=== PATIENT | male | born 1950 | race Caucasian/White ===

== ENCOUNTER 2018-02-07 10:15 | Inpatient (IN) | payer MEDICARE, MEDICAID ==
[2018-02-07 12:03] LABS: EOS % 0.8 % (0.0-4.0); HEMOGLOBIN 14.4 g/dL (12.0-18.0); LYMPH # 1.1 K/uL (1.0-4.3); LYMPH % 39.9 % (20.0-40.0); MEAN CELL VOLUME 94.5 fL (80.0-94.0); MEAN CORPUSCULAR HEMOGLOBIN 31.8 pg (27.0-31.0); MEAN CORPUSCULAR HGB CONC 33.6 g/dL (33.0-37.0); MEAN PLATELET VOLUME 10.9 fL (7.2-11.7); MONO # 0.4 K/uL (0.0-0.8); MONO % 15.6 % (0.0-10.0); NEUT # 1.2 K/uL (1.8-7.0); NEUT % 42.7 % (50.0-75.0); NRBC % 0.1 % (0.0-2.0); RBC 4.55 Mil/uL (4.40-5.90); RED CELL DISTRIBUTION WIDTH 16.6 % (11.5-14.5); WHITE BLOOD COUNT 2.9 K/uL (4.8-10.8)
[2018-02-07] MEDS ORDERED: Albuterol 0.083% Inhal Sol (2.5 mg/3 mL) UD IH STA (12:10)
[2018-02-07 12:11] LABS: INR 1.1; PROTHROMBIN TIME 12.9 SECONDS (9.7-12.2)
[2018-02-07 12:15] LABS: ALB/GLOB RATIO 1.4 (1.0-2.1); ALBUMIN 4.1 g/dL (3.5-5.0); ALT/SGPT 22 U/L (21-72); AST/SGOT 25 U/L (17-59); BLOOD UREA NITROGEN 19 mg/dL (9-20); CALCIUM 9.1 mg/dl (8.6-10.4); GFR AFRICAN-AMERICAN > 60; GFR NON-AFRICAN AMERICAN > 60
[2018-02-07 12:27] LABS: CK-MB 1.13 ng/mL (0.0-3.38)
[2018-02-07] MEDS ORDERED: Albuterol 0.083% Inhal Sol (2.5 mg/3 mL) UD ONE (12:30)
--- NOTE | 2018-02-07 12:31 | RAD ---
HISTORY: COMPARISON: No prior. TECHNIQUE: Chest PA and lateral FINDINGS: LINES AND TUBES: None. LUNG AND PLEURA: The lungs are well inflated and clear. No pneumothorax. There is a small left pleural effusion. No right pleural effusion HEART AND MEDIASTINUM: The heart is not enlarged. The hilar and mediastinal contours are within normal limits. SKELETAL STRUCTURES: The bony structures are within normal limits for the patient's age. VISUALIZED UPPER ABDOMEN: Normal. OTHER FINDINGS: None. IMPRESSION: Small left pleural effusion. No focal consolidation.
--- NOTE | 2018-02-07 12:46 | C.PDOC ---
History Of Present Illness 67 y/o male with history of CHF, Asthma, HTN and DM presents to ED with complaints of persistent cough with sputum associated sob for three days. (+) occasional chest pain with cough. (+) leg swelling Patient states symptoms are worse when laying down. Also admits to having increasing anxiety. Notes h/o stress test but unable to finish secondary to difficulty breathing on 11/2017. Denies fever, nausea, vomiting, symtpoms, or abdominal pain. Time Seen by Provider: 02/07/18 11:42 Chief Complaint (Nursing): Cough, Cold, Congestion History Per: Patient History/Exam Limitations: no limitations Onset/Duration Of Symptoms: Days Current Symptoms Are (Timing): Still Present Past Medical History Reviewed: Historical Data, Nursing Documentation, Vital Signs Vital Signs: Last Vital Signs Temp 97.2 F L 02/08/18 08:31 Pulse 83 02/08/18 08:31 Resp 20 02/08/18 08:31 BP 120/70 02/08/18 11:00 Pulse Ox 97 02/08/18 08:31 - Medical History PMH: Anxiety, Asthma, CHF, HTN, Hyperlipidemia Surgical History: No Surg Hx Family History: States: No Known Family Hx - Social History Hx Alcohol Use: Yes Hx Substance Use: No - Immunization History Hx Tetanus Toxoid Vaccination: No Hx Influenza Vaccination: Yes Hx Pneumococcal Vaccination: Yes Review Of Systems Constitutional: Negative for: Fever, Chills Cardiovascular: Positive for: Chest Pain Respiratory: Positive for: Cough, Shortness of Breath Gastrointestinal: Negative for: Nausea, Vomiting Skin: Negative for: Rash Physical Exam - Physical Exam Appears: Non-toxic, No Acute Distress, Other (anxious) Skin: Warm, Dry, No Rash Head: Atraumatic, Normacephalic Eye(s): bilateral: Normal Inspection, EOMI Nose: Normal Oral Mucosa: Moist Throat: Normal, No Erythema, No Exudate Neck: Normal ROM, Supple Chest: Symmetrical Cardiovascular: Rhythm Regular Respiratory: Decreased Breath Sounds, No Rales, No Rhonchi, No Wheezing Gastrointestinal/Abdominal: Soft, No Tenderness, No Guarding, No Rebound Extremity: Normal ROM, No Pedal Edema, Capillary Refill (<2 seconds) Neurological/Psych: Oriented x3, Normal Speech, Normal Cognition ED Course And Treatment - Laboratory Results Result Diagrams: 02/08/18 07:34 02/08/18 07:34 O2 Sat by Pulse Oximetry: 99 (RA) Pulse Ox Interpretation: Normal Progress Note: ECG, Albuterol, Neb treatment and Blood work ordered. Spoke to Dr. Gray in regards to patient, advised for admission to [facility]. Disposition - Disposition Disposition: HOSPITALIZED Disposition Time: 17:00 Condition: STABLE - Clinical Impression Clinical Impression: Bronchitis, Chest pain, Anxiety - PA / REHABILITATION LIAISON / Resident Statement MD/DO has reviewed & agrees with the documentation as recorded. - Scribe Statement The provider has reviewed the documentation as recorded by the Scribyuly Degroot All medical record entries made by the Elliot were at my direction and personally dictated by me. I have reviewed the chart and agree that the record accurately reflects my personal performance of the history, physical exam, medical decision making, and the department course for this patient. I have also personally directed, reviewed, and agree with the discharge instructions and disposition.
[2018-02-07 13:04] LABS: B-TYPE NATRIURETIC PEPTIDE 1540 pg/mL (0-900)
[2018-02-07 13:25] LABS: LIPASE 49 U/L (23-300)
[2018-02-07 21:50] LABS: CK-MB 1.07 ng/mL (0.0-3.38)
[2018-02-07] MEDS: Sacubitril/Valsartan 24-26mg Tab PO SCH (21:51)
[2018-02-08] MEDS: Albuterol HFA 90 mcg/actuation (8 g) IH SCH ×2 (01:24→19:08)
[2018-02-08 07:52] LABS: HEMOGLOBIN 14.1 g/dL (12.0-18.0); MEAN CELL VOLUME 94.8 fL (80.0-94.0); MEAN CORPUSCULAR HGB CONC 33.8 g/dL (33.0-37.0); MEAN PLATELET VOLUME 10.2 fL (7.2-11.7); RBC 4.39 Mil/uL (4.40-5.90); RED CELL DISTRIBUTION WIDTH 16.2 % (11.5-14.5); WHITE BLOOD COUNT 3.5 K/uL (4.8-10.8)
[2018-02-08 08:00] LABS: BLOOD UREA NITROGEN 23 mg/dL (9-20); CALCIUM 8.7 mg/dl (8.6-10.4); GFR AFRICAN-AMERICAN > 60; GFR NON-AFRICAN AMERICAN > 60
--- NOTE | 2018-02-08 10:49 | CP.PCM.PN ---
Subjective - Date & Time of Evaluation Date of Evaluation: 02/08/18 Time of Evaluation: 08:29 - Subjective Subjective: Medicine Progress Note- Dr. Gray's service 67 year old male with past medical history significant for asthma, HTN , DM and insomnia presents with complaints of coughing and shortness of breath which he began experiencing yesterday. Patient states that he was experiencing some pressure associated with the shortness of breath. He states that the cough is productive in nature with white sputum. He admits to sneezing. He denies rhinorrhea, chest pain, headaches, or palpitations or sick contacts at this time. PMHx- as stated above PSHx- denies Fam Hx- DM runs in the family Medications- albuterol, ASA 81 mg daily, Plavix 75 mg PO daily, Lasix 20 mg PO BID, Gabapentin 40 mg PO TID, Sacubitril/Valsartan 1 tab PO BID, Restoril 30mg PO HS, Tramadol 50 mg PO Q12 PRN Social- Former smoker - Quit 12 years ago. he smoked for " many years". He admits to social alcohol use. Allergy- Penicillin (rash) Objective - Vital Signs/Intake and Output Vital Signs (last 24 hours): Temp Pulse Resp BP Pulse Ox 97.2 F L 83 20 124/86 97 02/08/18 08:31 02/08/18 08:31 02/08/18 08:31 02/08/18 08:31 02/08/18 08:31 - Medications Medications: Current Medications Albuterol (Ventolin Hfa 90 Mcg/Actuation (8 G)) 2 puff IH RQ6 [facility] Last Admin: 02/08/18 01:24 Dose: Not Given Aspirin (Ecotrin) 81 mg PO DAILY [facility] Clopidogrel Bisulfate (Plavix) 75 mg PO DAILY [facility] Enoxaparin Sodium (Lovenox) 40 mg SC DAILY [facility] Furosemide (Lasix) 20 mg PO BID [facility] Gabapentin (Neurontin) 400 mg PO TID [facility] Last Admin: 02/07/18 21:51 Dose: 400 mg Pneumococcal Polyvalent Vaccine (Pneumovax 23 Vaccine) 0.5 ml IM .ONCE ONE Stop: 02/09/18 10:01 Sacubitril/Valsartan (Entresto 24 Mg-26 Mg) 1 tab PO BID [facility] Last Admin: 02/07/18 21:51 Dose: 1 tab Temazepam (Restoril) 30 mg PO HS PRN PRN Reason: Insomnia Last Admin: 02/07/18 21:51 Dose: 30 mg Tramadol HCl (Ultram) 50 mg PO Q12 PRN PRN Reason: Pain, moderate (4-7) Last Admin: 02/07/18 21:51 Dose: 50 mg - Labs Labs: 02/08/18 07:34 02/08/18 07:34 PT 12.9 SECONDS (9.7-12.2) H 02/07/18 12:00 INR 1.1 02/07/18 12:00 APTT 32 SECONDS (21-34) 02/07/18 12:00 - Constitutional Appears: Non-toxic, No Acute Distress - Head Exam Head Exam: ATRAUMATIC, NORMAL INSPECTION - Eye Exam Eye Exam: EOMI, Normal appearance, PERRL Pupil Exam: NORMAL ACCOMODATION - ENT Exam ENT Exam: Mucous Membranes Moist - Neck Exam Neck Exam: Full ROM - Respiratory Exam Respiratory Exam: NORMAL BREATHING PATTERN. absent: Wheezes Additional comments: decreased expiratory effort - Cardiovascular Exam Cardiovascular Exam: +S1, +S2 - GI/Abdominal Exam GI & Abdominal Exam: Soft, Normal Bowel Sounds - Extremities Exam Extremities Exam: Full ROM, Normal Capillary Refill - Back Exam Back Exam: Full ROM - Neurological Exam Neurological Exam: Alert, Awake, Oriented x3 - Psychiatric Exam Psychiatric exam: Normal Affect, Normal Mood - Skin Skin Exam: Dry, Normal Color, Warm Assessment and Plan (1) Shortness of breath Assessment & Plan: Albuterol HFA Q6 PRN CXR- Small left sided pleural effusion noted BNP 1540 On Oxygen NC PRN F/U EKG and Echo Status: Acute (2) HTN (hypertension) Assessment & Plan: ASA 81 mg PO daily Lasix 20 mg PO BID Status: Chronic (3) Diabetes mellitus Assessment & Plan: on ISS Accuchecks Gabapentin 400 mg PO TID On Entresto BID Status: Chronic (4) Prophylactic measure Assessment & Plan: Lovenox SC daily No indication for GI prophylaxis at this time. Disposition: Will monitor overnight. With continued improvement, will likely discharge tomorrow if EKG and Echo results are within normal parameters. Discussed with attending. All management and planning per Dr. Gray Status: Acute
[2018-02-08] MEDS: Sacubitril/Valsartan 24-26mg Tab PO SCH ×2 (11:00→18:52)
[2018-02-08] MEDS: Enoxaparin 40 mg Syringe SC SCH (11:00)
--- NOTE | 2018-02-08 17:13 | CARD ---
APPROVED REPORT EKG Measurement Heart [id number] <Conclusion> Normal sinus rhythm Possible Left atrial enlargement T wave abnormality, consider lateral ischemia Abnormal ECG
[2018-02-09] MEDS: Albuterol HFA 90 mcg/actuation (8 g) IH SCH ×3 (02:21→19:39)
--- NOTE | 2018-02-09 07:57 | CP.PCM.PN ---
Subjective - Date & Time of Evaluation Date of Evaluation: 02/09/18 Time of Evaluation: 07:56 - Subjective Subjective: Medicine Progress Note- Dr. Gray's service Pt seen and examined at bedside. Nursing reports no acute events overnight. Patient reports his breathing was much improved today. He denies shortness of breath with exertion, chest pain, or palpitations. Patient was able to walk around department briskly without any desaturation or needing to rest. Objective - Vital Signs/Intake and Output Vital Signs (last 24 hours): Temp Pulse Resp BP Pulse Ox 97.4 F L 74 20 111/75 97 02/08/18 23:40 02/09/18 03:57 02/08/18 23:40 02/08/18 23:40 02/08/18 23:40 Intake and Output: 02/09/18 02/09/18 06:59 18:59 Intake Total 500 Output Total 525 Balance -25 - Medications Medications: Current Medications Albuterol (Ventolin Hfa 90 Mcg/Actuation (8 G)) 2 puff IH RQ6 [facility] Last Admin: 02/09/18 02:21 Dose: Not Given Aspirin (Ecotrin) 81 mg PO DAILY [facility] Last Admin: 02/08/18 11:00 Dose: 81 mg Benzonatate (Tessalon Perles) 100 mg PO TID [facility] Last Admin: 02/08/18 18:50 Dose: 100 mg Clopidogrel Bisulfate (Plavix) 75 mg PO DAILY [facility] Last Admin: 02/08/18 11:00 Dose: 75 mg Enoxaparin Sodium (Lovenox) 40 mg SC DAILY [facility] Last Admin: 02/08/18 11:00 Dose: Not Given Furosemide (Lasix) 20 mg PO BID [facility] Last Admin: 02/08/18 18:52 Dose: 20 mg Gabapentin (Neurontin) 400 mg PO TID [facility] Last Admin: 02/08/18 18:52 Dose: 400 mg Pneumococcal Polyvalent Vaccine (Pneumovax 23 Vaccine) 0.5 ml IM .ONCE ONE Stop: 02/09/18 10:01 Sacubitril/Valsartan (Entresto 24 Mg-26 Mg) 1 tab PO BID [facility] Last Admin: 02/08/18 18:52 Dose: 1 tab Temazepam (Restoril) 30 mg PO HS PRN PRN Reason: Insomnia Last Admin: 02/08/18 20:56 Dose: 30 mg Tramadol HCl (Ultram) 50 mg PO Q12 PRN PRN Reason: Pain, moderate (4-7) Last Admin: 02/08/18 20:56 Dose: 50 mg - Labs Labs: 02/08/18 07:34 02/08/18 07:34 PT 12.9 SECONDS (9.7-12.2) H 02/07/18 12:00 INR 1.1 02/07/18 12:00 APTT 32 SECONDS (21-34) 02/07/18 12:00 - Additional Findings Additional findings: - Constitutional Appears: Non-toxic, No Acute Distress - Head Exam Head Exam: ATRAUMATIC, NORMAL INSPECTION - Eye Exam Eye Exam: EOMI, Normal appearance, PERRL Pupil Exam: NORMAL ACCOMODATION - ENT Exam ENT Exam: Mucous Membranes Moist - Neck Exam Neck Exam: Full ROM - Respiratory Exam Respiratory Exam: NORMAL BREATHING PATTERN. absent: Wheezes Additional comments: - Cardiovascular Exam Cardiovascular Exam: +S1, +S2 - GI/Abdominal Exam GI & Abdominal Exam: Soft, Normal Bowel Sounds - Extremities Exam Extremities Exam: Full ROM, Normal Capillary Refill - Back Exam Back Exam: Full ROM - Neurological Exam Neurological Exam: Alert, Awake, Oriented x3 - Psychiatric Exam Psychiatric exam: Normal Affect, Normal Mood - Skin Skin Exam: Dry, Normal Color, Warm Assessment and Plan - Assessment and Plan (Free Text) Plan: Asthma vs CHF exacerbation vs. Bronchitis Admission on tele EKG (02/07/18): NSR, CXR- Small left sided pleural effusion noted BNP 1540 (no prior for comparison) On Oxygen NC PRN f/u Echo (02/08/18) Ventolin HFA Q6 PRN Entresto 24/26mg PO BID Lasix 20mg PO BID Tessalon perles 100mg PO TID Pt reports he is intolerant of BB and no longer takes Coreg Leukopenia WBC 2.9 on admission labs f/u hepatitis panel, HIV HTN (hypertension) Elevated Disastolic today Lasix 20 mg PO BID Entresto 24/26mg PO BID Monitor CAD ASA 81 mg PO daily Plavix 75mg PO Daily Diabetes mellitus w neuropathy ISS Accuchecks Hypoglycemia protocol Gabapentin 400 mg PO TID Insomnia 30mg PO HS Prophylactic measure Lovenox SC daily SCDs No indication for GI prophylaxis at this time. Disposition: Patient for possible discharge depending on ECHO reading. Dr. Melgar is reading investment manager. If EF<35% will need cardio eval, perhaps lifevest. Discussed with attending. All management and planning per Dr. Gray
[2018-02-09 08:03] LABS: BASO % 0.8 % (0.0-2.0); EOS # 0.1 K/uL (0.0-0.7); EOS % 2.6 % (0.0-4.0); HEMOGLOBIN 13.6 g/dL (12.0-18.0); LYMPH # 1.7 K/uL (1.0-4.3); LYMPH % 53.6 % (20.0-40.0); MEAN CELL VOLUME 93.8 fL (80.0-94.0); MEAN CORPUSCULAR HEMOGLOBIN 31.9 pg (27.0-31.0); MEAN PLATELET VOLUME 10.5 fL (7.2-11.7); MONO # 0.4 K/uL (0.0-0.8); MONO % 14.5 % (0.0-10.0); NEUT # 0.9 K/uL (1.8-7.0); NEUT % 28.5 % (50.0-75.0); NRBC % 0.2 % (0.0-2.0); RBC 4.25 Mil/uL (4.40-5.90); RED CELL DISTRIBUTION WIDTH 16.3 % (11.5-14.5); WHITE BLOOD COUNT 3.1 K/uL (4.8-10.8)
[2018-02-09 08:27] LABS: ALB/GLOB RATIO 1.4 (1.0-2.1); ALBUMIN 3.5 g/dL (3.5-5.0); ALT/SGPT 14 U/L (21-72); AST/SGOT 19 U/L (17-59); BLOOD UREA NITROGEN 22 mg/dL (9-20); CALCIUM 8.2 mg/dl (8.6-10.4); GFR AFRICAN-AMERICAN > 60; GFR NON-AFRICAN AMERICAN > 60
[2018-02-09] MEDS: Enoxaparin 40 mg Syringe SC SCH (09:10)
[2018-02-09] MEDS: Sacubitril/Valsartan 24-26mg Tab PO SCH ×3 (09:21→21:02)
[2018-02-09] MEDS ORDERED: Pneumococcal 23-Valent Vaccine IM ONE (10:00)
--- NOTE | 2018-02-09 16:41 | CARD ---
APPROVED REPORT EXAM: Two-dimensional and M-mode echocardiogram with Doppler and color Doppler. Other Information Quality : GoodRhythm : INDICATION Dizziness and Vertigo Dyspnea RISK FACTORS Hypertension Diabetes 2D DIMENSIONS IVSd0.7 (0.7-1.1cm)LVDd6.1 (3.9-5.9cm) PWd0.9 (0.7-1.1cm)LVDs5.7 (2.5-4.0cm) FS (%) 6.9 %LVEF (%)15.0 (>50%) M-Mode DIMENSIONS RVDd1.25 (2.1-3.2cm)Left Atrium (MM)5.24 (2.5-4.0cm) IVSd1.03 (0.7-1.1cm)Aortic Root2.97 (2.2-3.7cm) LVDd6.97 (4.0-5.6cm)Aortic Cusp Exc.1.66 (1.5-2.0cm) PWd0.96 (0.7-1.1cm)FS (%) 12 % LVDs6.12 (2.0-3.8cm)LVEF (%)18 (>50%) Aortic Valve AI P 1/2 [id number] Mitral Valve MV E Aqfyglwt393.6cm/sE/A ratio0.0 TDI E/Lateral E'0.0E/Medial E'0.0 Tricuspid Valve TR Peak [id number]/sTR Peak Gr.[id number] LEFT VENTRICLE The Left Ventricle is mildly dilated. There is normal left ventricular wall thickness. The systolic function is severely impaired. Regional wall motion abnormalities noted in the lateral and anterior lopez No left ventricle thrombus noted on this study. RIGHT VENTRICLE The right ventricle is mildly dilated. There is normal right ventricular wall thickness. RV Systolic function is moderately reduced. ATRIA The left atrium is moderately dilated. The right atrium is mildly dilated. The atrial septum is aneurysmal. AORTIC VALVE There is mild aortic regurgitation. MITRAL VALVE Mitral regurgitation is severe. TRICUSPID VALVE There is moderate tricuspid regurgitation. There is severe pulmonary hypertension. PULMONIC VALVE There is mild pulmonic valvular regurgitation. GREAT VESSELS The aortic root is normal in size. The IVC is normal in size and collapses >50% with inspiration. PERICARDIAL EFFUSION There is no pericardial effusion. <Conclusion> The Left Ventricle is mildly dilated. There is normal left ventricular wall thickness. The systolic function is severely impaired. Regional wall motion abnormalities noted in the lateral and anterior lopez RV Systolic function is moderately reduced. There is mild aortic regurgitation. Mitral regurgitation is severe. There is moderate tricuspid regurgitation. There is severe pulmonary hypertension.
[2018-02-09 20:40] LABS: HEPATITIS B SURFACE AG Negative (NEGATIVE)
[2018-02-09 20:46] LABS: HEPATITIS A IGM NEGATIVE (NEGATIVE); HEPATITIS B CORE AB NEGATIVE (NEGATIVE)
[2018-02-09] MEDS ORDERED: guaiFENesin 100 mg/5 ml Syrup UD PO PRN (21:23)
[2018-02-09 21:42] LABS: HEPATITIS C ANTIBODY NEGATIVE (NEGATIVE)
[2018-02-10 00:54] VITALS: RESP 20
[2018-02-10] MEDS: Albuterol HFA 90 mcg/actuation (8 g) IH SCH (01:43)
--- NOTE | 2018-02-10 05:42 | CP.PCM.CON ---
History of Present Illness - History of Present Illness History of Present Illness: 67 M admitted with chest pain and dyspnea Acute on Chronic systolic CHF Patient has low EF 20% Severe MR Severe Pulmonary HTN Likely needs cath (Wednesday) LifeVest Diuresis for now Check Trops Will contact Dr. Pham Past Patient History - Infectious Disease Hx of Infectious Diseases: None - Past Social History Smoking Status: Former Smoker - CARDIAC Hx Congestive Heart Failure: Yes Hx Hypertension: Yes - PULMONARY Hx Asthma: Yes - ENDOCRINE/METABOLIC Hx Endocrine Disorders: Yes Hx Diabetes Mellitus Type 2: Yes - MUSCULOSKELETAL/RHEUMATOLOGICAL Hx Falls: Yes (foot sx in the past) - GASTROINTESTINAL Hx Gastrointestinal Disorders: Yes Hx Gastroesophageal Reflux: Yes - PSYCHIATRIC Hx Anxiety: Yes Hx Substance Use: No - SURGICAL HISTORY Hx Surgeries: Yes Hx Orthopedic Surgery: Yes (left leg) - ANESTHESIA Hx Anesthesia: Yes Hx Anesthesia Reactions: No Meds Allergies/Adverse Reactions: Allergies Allergy/AdvReac Type Severity Reaction Status Date / Time Penicillins Allergy ITCHING Verified 07/13/16 09:34 - Medications Medications: Current Medications Albuterol (Ventolin Hfa 90 Mcg/Actuation (8 G)) 2 puff IH RQ6 [facility] Last Admin: 02/10/18 01:43 Dose: Not Given Albuterol/Ipratropium (Duoneb 3 Mg/0.5 Mg (3 Ml) Ud) 3 ml INH RQ4 [facility] Aspirin (Ecotrin) 81 mg PO DAILY [facility] Last Admin: 02/09/18 09:11 Dose: 81 mg Benzonatate (Tessalon Perles) 100 mg PO TID [facility] Last Admin: 02/09/18 21:02 Dose: 100 mg Clopidogrel Bisulfate (Plavix) 75 mg PO DAILY [facility] Last Admin: 02/09/18 09:15 Dose: 75 mg Enoxaparin Sodium (Lovenox) 40 mg SC DAILY [facility] Last Admin: 02/09/18 09:10 Dose: 40 mg Furosemide (Lasix) 20 mg PO BID [facility] Last Admin: 02/09/18 17:50 Dose: Not Given Gabapentin (Neurontin) 400 mg PO TID [facility] Last Admin: 02/09/18 21:02 Dose: 400 mg Guaifenesin (Robitussin) 100 mg PO Q4H PRN PRN Reason: Cough Last Admin: 02/09/18 21:35 Dose: 100 mg Sacubitril/Valsartan (Entresto 24 Mg-26 Mg) 1 tab PO BID [facility] Last Admin: 02/09/18 21:02 Dose: 1 tab Temazepam (Restoril) 30 mg PO HS PRN PRN Reason: Insomnia Last Admin: 02/09/18 21:02 Dose: 30 mg Tramadol HCl (Ultram) 50 mg PO Q12 PRN PRN Reason: Pain, moderate (4-7) Last Admin: 02/09/18 21:01 Dose: 50 mg Results - Vital Signs Recent Vital Signs: Last Vital Signs Temp 98.4 F 02/09/18 23:35 Pulse 95 H 02/10/18 03:58 Resp 20 02/09/18 23:35 BP 100/70 02/09/18 23:35 Pulse Ox 98 02/09/18 23:35 - Labs Result Diagrams: 02/09/18 08:10 02/09/18 08:06 Labs: Laboratory Results - last 24 hr 02/09/18 02/09/18 02/09/18 06:11 08:06 08:10 WBC 3.1 L RBC 4.25 L Hgb 13.6 Hct 39.8 MCV 93.8 MCH 31.9 H MCHC 34.0 RDW 16.3 H Plt Count 203 MPV 10.5 Neut % (Auto) 28.5 L Lymph % (Auto) 53.6 H Burnett % (Auto) 14.5 H Eos % (Auto) 2.6 Baso % (Auto) 0.8 Neut # (Auto) 0.9 L Lymph # (Auto) 1.7 Burnett # (Auto) 0.4 Eos # (Auto) 0.1 Baso # (Auto) 0.0 Sodium 137 Potassium 3.8 Chloride 103 Carbon Dioxide 24 Anion Gap 15 BUN 22 H Creatinine 1.1 Est GFR ( Amer) > 60 Est GFR (Non-Af Amer) > 60 POC Glucose (mg/dL) 85 Random Glucose 82 Calcium 8.2 L Phosphorus 2.9 Magnesium 1.8 Total Bilirubin 0.6 AST 19 ALT 14 L D Alkaline Phosphatase 38 Total Protein 6.0 L Albumin 3.5 Globulin 2.5 Albumin/Globulin Ratio 1.4 Hepatitis A IgM Ab Hep Bs Antigen Hep B Core IgM Ab Hepatitis C Antibody HIV 1&2 Antibody Screen 02/09/18 02/09/18 02/09/18 11:23 16:17 19:45 WBC RBC Hgb Hct MCV MCH MCHC RDW Plt Count MPV Neut % (Auto) Lymph % (Auto) Burnett % (Auto) Eos % (Auto) Baso % (Auto) Neut # (Auto) Lymph # (Auto) Burnett # (Auto) Eos # (Auto) Baso # (Auto) Sodium Potassium Chloride Carbon Dioxide Anion Gap BUN Creatinine Est GFR ( Amer) Est GFR (Non-Af Amer) POC Glucose (mg/dL) 113 H 112 H Random Glucose Calcium Phosphorus Magnesium Total Bilirubin AST ALT Alkaline Phosphatase Total Protein Albumin Globulin Albumin/Globulin Ratio Hepatitis A IgM Ab Negative Hep Bs Antigen Negative Hep B Core IgM Ab Negative Hepatitis C Antibody Negative HIV 1&2 Antibody Screen 02/09/18 02/09/18 19:45 21:08 WBC RBC Hgb Hct MCV MCH MCHC RDW Plt Count MPV Neut % (Auto) Lymph % (Auto) Burnett % (Auto) Eos % (Auto) Baso % (Auto) Neut # (Auto) Lymph # (Auto) Burnett # (Auto) Eos # (Auto) Baso # (Auto) Sodium Potassium Chloride Carbon Dioxide Anion Gap BUN Creatinine Est GFR ( Amer) Est GFR (Non-Af Amer) POC Glucose (mg/dL) 97 Random Glucose Calcium Phosphorus Magnesium Total Bilirubin AST ALT Alkaline Phosphatase Total Protein Albumin Globulin Albumin/Globulin Ratio Hepatitis A IgM Ab Hep Bs Antigen Hep B Core IgM Ab Hepatitis C Antibody HIV 1&2 Antibody Screen Negative
--- NOTE | 2018-02-10 08:02 | CP.PCM.PN ---
Subjective - Date & Time of Evaluation Date of Evaluation: 02/10/18 Time of Evaluation: 08:00 - Subjective Subjective: Medicine Progress Note- Dr. Gray's service Pt seen and examined at bedside. Nursing reports no acute events overnight. Patient reports his breathing was much improved today. He denies shortness of breath with exertion, chest pain, or palpitations. Patient is ambulating. Patient is refusing lifevest/AICD and would like to go home. Objective - Vital Signs/Intake and Output Vital Signs (last 24 hours): Temp Pulse Resp BP Pulse Ox 98.4 F 95 H 20 100/70 98 02/09/18 23:35 02/10/18 03:58 02/09/18 23:35 02/09/18 23:35 02/09/18 23:35 - Medications Medications: Current Medications Albuterol (Ventolin Hfa 90 Mcg/Actuation (8 G)) 2 puff IH RQ6 [facility] Last Admin: 02/10/18 01:43 Dose: Not Given Albuterol/Ipratropium (Duoneb 3 Mg/0.5 Mg (3 Ml) Ud) 3 ml INH RQ4 [facility] Aspirin (Ecotrin) 81 mg PO DAILY [facility] Last Admin: 02/09/18 09:11 Dose: 81 mg Benzonatate (Tessalon Perles) 100 mg PO TID [facility] Last Admin: 02/09/18 21:02 Dose: 100 mg Clopidogrel Bisulfate (Plavix) 75 mg PO DAILY [facility] Last Admin: 02/09/18 09:15 Dose: 75 mg Enoxaparin Sodium (Lovenox) 40 mg SC DAILY [facility] Last Admin: 02/09/18 09:10 Dose: 40 mg Furosemide (Lasix) 20 mg PO BID [facility] Last Admin: 02/09/18 17:50 Dose: Not Given Gabapentin (Neurontin) 400 mg PO TID [facility] Last Admin: 02/09/18 21:02 Dose: 400 mg Guaifenesin (Robitussin) 100 mg PO Q4H PRN PRN Reason: Cough Last Admin: 02/09/18 21:35 Dose: 100 mg Sacubitril/Valsartan (Entresto 24 Mg-26 Mg) 1 tab PO BID [facility] Last Admin: 02/09/18 21:02 Dose: 1 tab Temazepam (Restoril) 30 mg PO HS PRN PRN Reason: Insomnia Last Admin: 02/09/18 21:02 Dose: 30 mg Tramadol HCl (Ultram) 50 mg PO Q12 PRN PRN Reason: Pain, moderate (4-7) Last Admin: 02/09/18 21:01 Dose: 50 mg - Labs Labs: 02/09/18 08:10 02/09/18 08:06 PT 12.9 SECONDS (9.7-12.2) H 02/07/18 12:00 INR 1.1 02/07/18 12:00 APTT 32 SECONDS (21-34) 02/07/18 12:00 - Constitutional Appears: Non-toxic, No Acute Distress - Head Exam Head Exam: NORMAL INSPECTION - Eye Exam Eye Exam: EOMI Pupil Exam: NORMAL ACCOMODATION - ENT Exam ENT Exam: Mucous Membranes Moist - Respiratory Exam Respiratory Exam: Clear to Ausculation Bilateral, Rales, NORMAL BREATHING PATTERN - Cardiovascular Exam Cardiovascular Exam: REGULAR RHYTHM, +S1, +S2 - GI/Abdominal Exam GI & Abdominal Exam: Soft, Normal Bowel Sounds. absent: Distended, Firm, Guarding, Tenderness - Extremities Exam Extremities Exam: Normal Inspection, Pedal Edema - Back Exam Back Exam: NORMAL INSPECTION - Neurological Exam Neurological Exam: Alert, Awake, CN II-XII Intact, Normal Gait, Oriented x3 - Psychiatric Exam Psychiatric exam: Normal Affect, Normal Mood Assessment and Plan - Assessment and Plan (Free Text) Assessment: CHF exacerbation , acute on chronic systolic dysfunction ECHO results show EF of ~18%, wall motion abnormalities, severe Pulm HTN Dr. Zhao cardiology consulted for med optimization/lifevest candidate - Patient had a cardiac cath in June/ of last year at [facility] which showed clear coronaries Patient is refusing lifevest and AICD - private liquid floor and wall applier is Dr. Esdras Pham BNP 1540 (no prior for comparison) Lasix 20mg PO BID Entresto 24/26mg PO BID As[facility] 81mg PO daily Asthma vs CHF exacerbation vs. Bronchitis Admission on tele EKG (02/07/18): NSR, CXR- Small left sided pleural effusion noted On Oxygen NC PRN Ventolin HFA Q6 PRN Tessalon perles 100mg PO TID Pt reports he is intolerant of BB and no longer takes Coreg Leukopenia WBC 2.9 on admission labs hepatitis panel, HIV - negative HTN (hypertension) Elevated Disastolic today Lasix 20 mg PO BID Entresto 24/26mg PO BID Monitor CAD ASA 81 mg PO daily Plavix 75mg PO Daily Diabetes mellitus w neuropathy ISS Accuchecks Hypoglycemia protocol Gabapentin 400 mg PO TID Insomnia Restoril 30mg PO HS Prophylactic measure Lovenox SC daily SCDs No indication for GI prophylaxis at this time. Patient is stable for discharge home. Patient is to follow up with Dr. Gray within one week of discharge. Patient also is to follow up with his liquid floor and wall applier outpatient within one week so discharge. Patient refused lifevest/ defibrillator device. Patient is to continue his current medications. Refills were sent to the [facility] pharmacy on [address]. Patient is to return to the emergency room if symptoms return. All instructions explained to the patient and he agrees. Discussed with attending. All management and planning per Dr. Gray
[2018-02-10 08:30] VITALS: BP 98/66; TEMP 97.7; O2SAT 95
[2018-02-10 08:33] VITALS: PULSE 107
[2018-02-10] MEDS: Sacubitril/Valsartan 24-26mg Tab PO SCH (10:00)
[2018-02-10] MEDS: Enoxaparin 40 mg Syringe SC SCH (10:01)
--- NOTE | 2018-02-10 15:19 | PCM.HF ---
Heart Failure Core Measure - Heart Failure Ejection Fraction: Less Than 40 % KENN Inhibitor Prescribed: Yes Beta-Tony Prescribed: Carvedilol Angiotensin II Receptor Tony Prescribed: Yes AnticoagulationTherapy for Atrial Fibrillation/Atrialflutter: No Contraindication/Reason for not providing: no hx of a fib Aldosterone Antagonist Prescribed: Yes Hydralazine Nitrate Prescribed: No Contraindication/Reason for not providing: bp low Implantable Cardioverter Defibrillator Therapy: No Contraindication/Reason for not providing: pt refuse d Cardiac Resynchronization Therapy Prescribed: No Contraindication/Reason for not providing: pt refuse / only medical management - Follow up Will be discharged to: Home Follow Up Date (must be within 7 days from discharge): 02/14/18 Follow Up Time: 09:00
[2018-02-10] MEDS ORDERED: Albuterol-Ipratrop 3 mg / 0.5 (3 ml) UD INH SCH (21:24)
== END 2018-02-10 12:29 | disposition home or self-care (01) | DRG 314 ==
LOC: C.ER 10:15 → C.9E 13:41 → C.6T 17:45 → OBSVTOIN 02-09 16:46
PROVIDERS: ADMIT Internal Medicine Pulmonary Disease; ATTEND Internal Medicine Pulmonary Disease
DX: I27.20 Pulmonary hypertension, unspecified (principal); I50.23 Acute on chronic systolic (congestive) heart failure; J45.909 Unspecified asthma, uncomplicated; I11.0 Hypertensive heart disease with heart failure; I25.10 Atherosclerotic heart disease of native coronary artery without angina pectoris; F41.9 Anxiety disorder, unspecified; E78.5 Hyperlipidemia, unspecified; E11.40 Type 2 diabetes mellitus with diabetic neuropathy, unspecified; Z88.0 Allergy status to penicillin; K21.9 Gastro-esophageal reflux disease without esophagitis; G47.00 Insomnia, unspecified; T36.0X5A Adverse effect of penicillins, initial encounter; Z87.891 Personal history of nicotine dependence; D72.819 Decreased white blood cell count, unspecified

== ENCOUNTER 2018-02-25 17:08 | Inpatient (IN) | payer MEDICARE, MEDICAID ==
[2018-02-25 17:58] LABS: BASO % 0.9 % (0.0-2.0); EOS % 0.6 % (0.0-4.0); HEMOGLOBIN 13.6 g/dL (12.0-18.0); LYMPH % 40.8 % (20.0-40.0); MEAN CELL VOLUME 93.7 fL (80.0-94.0); MEAN CORPUSCULAR HEMOGLOBIN 31.8 pg (27.0-31.0); MEAN CORPUSCULAR HGB CONC 33.9 g/dL (33.0-37.0); MEAN PLATELET VOLUME 10.3 fL (7.2-11.7); MONO # 0.4 K/uL (0.0-0.8); MONO % 8.9 % (0.0-10.0); NEUT # 2.4 K/uL (1.8-7.0); NEUT % 48.8 % (50.0-75.0); NRBC % 0.1 % (0.0-2.0); RBC 4.28 Mil/uL (4.40-5.90); RED CELL DISTRIBUTION WIDTH 16.6 % (11.5-14.5)
[2018-02-25 18:02] LABS: WHITE BLOOD COUNT 4.8 K/uL (4.8-10.8)
[2018-02-25 18:07] LABS: ALB/GLOB RATIO 1.7 (1.0-2.1); ALT/SGPT 47 U/L (21-72); AST/SGOT 62 U/L (17-59); BLOOD UREA NITROGEN 25 mg/dL (9-20); GFR AFRICAN-AMERICAN > 60; GFR NON-AFRICAN AMERICAN 55
[2018-02-25 18:08] LABS: INR 1.1; PROTHROMBIN TIME 12.9 SECONDS (9.7-12.2)
[2018-02-25] MEDS ORDERED: Digoxin 500 mcg/2ml (0.5 mg/2ml) Inj IVP STA (18:09)
[2018-02-25 18:17] LABS: B-TYPE NATRIURETIC PEPTIDE 8110 pg/mL (0-900)
--- NOTE | 2018-02-25 18:20 | C.PDOC ---
History Of Present Illness 67 y/o male presents to the ED complaining of palpitations and chest discomfort since this morning. Patient also reports feeling anxious, and has PMHx of anxiety. Of note, patient was admitted here on 02/16 and an echocardiogram at that time showed severe pulmonary hypertension, with 18% EF. Patient also complains of mild SOB. Denies fever, chills, nausea, vomiting, diaphoresis, or other complaints. Time Seen by Provider: 02/25/18 17:28 Chief Complaint (Nursing): Chest Pain History Per: Patient History/Exam Limitations: no limitations Onset/Duration Of Symptoms: Hrs Current Symptoms Are (Timing): Still Present Past Medical History Reviewed: Historical Data, Nursing Documentation, Vital Signs Vital Signs: Last Vital Signs Temp 97.9 F 02/25/18 20:28 Pulse 99 H 02/25/18 20:28 Resp 20 02/25/18 20:28 BP 98/70 L 02/25/18 20:28 Pulse Ox 99 02/25/18 20:28 - Medical History PMH: Anxiety, Asthma, CHF, HTN, Hyperlipidemia Surgical History: Denies: Pacemaker Other Surgeries: Left leg surgery Family History: States: Unknown Family Hx - Social History Hx Tobacco Use: No Hx Alcohol Use: No Hx Substance Use: No - Immunization History Hx Tetanus Toxoid Vaccination: No Hx Influenza Vaccination: Yes Hx Pneumococcal Vaccination: Yes Review Of Systems Except As Marked, All Systems Reviewed And Found Negative. Constitutional: Negative for: Fever Eyes: Negative for: Vision Change Cardiovascular: Positive for: Chest Pain, Palpitations Respiratory: Positive for: Shortness of Breath Gastrointestinal: Negative for: Vomiting Psych: Positive for: Anxiety Physical Exam - Physical Exam Appears: No Acute Distress Skin: Warm, Dry, No Diaphoretic Head: Atraumatic, Normacephalic Eye(s): bilateral: Normal Inspection, PERRL, EOMI Oral Mucosa: Moist Neck: Normal ROM, Supple Chest: Symmetrical, No Tenderness Cardiovascular: Rhythm Irregular (Irregularly irregular), Other (Tachycardic) Respiratory: Normal Breath Sounds, No Rales, No Rhonchi, No Wheezing Gastrointestinal/Abdominal: Soft, No Tenderness, No Distention Extremity: Bilateral: Atraumatic, No Pedal Edema, Normal Color And Temperature Pulses: Left Dorsalis Pedis: Normal, Right Dorsalis Pedis: Normal Neurological/Psych: Oriented x3, Normal Speech, Normal Cranial Nerves, No Other (focal deficits) ED Course And Treatment - Laboratory Results Result Diagrams: 02/25/18 17:49 02/25/18 17:49 Lab Interpretation: Normal (dig low) ECG: Interpreted By Me ECG Rhythm: Atrial Fibrillation ECG Interpretation: Abnormal (+ change c/w NSR 02/07/18) Rate From EC O2 Sat by Pulse Oximetry: 100 (NC) Pulse Ox Interpretation: Normal - Radiology CXR: Interpreted by Me CXR Interpretation: Yes: Other (+ ? mild CHF) Progress Note: xanax, dig Reevaluation Time: 18:22 Reassessment Condition: Improved - Physician Consult Information Outcome Of Conversation: 1800: d/w Dr Brown- PMD- ok to admit. Medical Decision Making Medical Decision Making: new onset AF low EJF 18% on card US this month, started to rate control with Dig now already anticoagulted w Plavix, defer additional anticoag for new AF Consider implantable pacer/defib in pt with low EJF Asthma: lungs clear CHF: Seems euvolemic, hold further diuresis Anxiety: Xanax given helps with HR control. Disposition Doctor Will See Patient In The: Hospital Counseled Patient/Family Regarding: Studies Performed, Diagnosis - Disposition Disposition: HOSPITALIZED Disposition Time: 18:23 Condition: FAIR - Clinical Impression Clinical Impression: Chest pain, Rapid atrial fibrillation - Scribe Statement The provider has reviewed the documentation as recorded by the Scribe (Liberty Magaña) Provider Attestation: All medical record entries made by the Scribe were at my direction and personally dictated by me. I have reviewed the chart and agree that the record accurately reflects my personal performance of the history, physical exam, medical decision making, and the department course for this patient. I have also personally directed, reviewed, and agree with the discharge instructions and disposition.
[2018-02-25 18:21] LABS: BARBITURATES, UR NEGATIVE (NEGATIVE)
[2018-02-25] MEDS ORDERED: Digoxin 500 mcg/2ml (0.5 mg/2ml) Inj ONE (18:21)
[2018-02-25 18:25] LABS: SQUAMOUS EPITHIAL < 1 /hpf (0-5); URINE BACTERIA RARE (<OCC); URINE BILIRUBIN NEGATIVE (NEGATIVE); URINE BLOOD NEGATIVE (NEGATIVE); URINE CLARITY Hazy (Clear); URINE COLOR Yellow (YELLOW); URINE GLUCOSE (UA) NORMAL (Normal); URINE LEUKOCYTE ESTERASE TRACE Leu/uL (Negative); URINE PROTEIN 1+ mg/dL (NEGATIVE); URINE UROBILINOGEN NORMAL mg/dL (0.2-1.0)
[2018-02-25 18:30] VITALS: PULSE 130
[2018-02-25 18:39] LABS: BENZODIAZEPINES, UR NEGATIVE (NEGATIVE); OPIATES, UR NEGATIVE (NEGATIVE); PHENCYCLIDINE, UR NEGATIVE (NEGATIVE)
--- NOTE | 2018-02-25 18:49 | RAD ---
PROCEDURE: CHEST RADIOGRAPH, 1 VIEW HISTORY: SOB COMPARISON: 02/07/2018 FINDINGS: LUNGS: Clear. PLEURA: Blunting of left costophrenic angle indicates possible small pleural effusion. This is unchanged compared to the prior examination. CARDIOVASCULAR: Normal. OSSEOUS STRUCTURES: No significant abnormalities. VISUALIZED UPPER ABDOMEN: Normal. OTHER FINDINGS: None. IMPRESSION: No pulmonary infiltrate. Possible small left pleural effusion.
[2018-02-25] MEDS ORDERED: Sacubitril/Valsartan 24-26mg Tab PO SCH (22:00)
[2018-02-25] MEDS: Sacubitril/Valsartan 49-51 Tab PO SCH (22:57)
[2018-02-26] MEDS: Albuterol HFA 90 mcg/actuation (8 g) IH SCH ×5 (06:13→20:08)
[2018-02-26] MEDS: Enoxaparin 40 mg Syringe SC SCH (10:06)
[2018-02-26] MEDS: Sacubitril/Valsartan 49-51 Tab PO SCH ×3 (10:06→18:10)
--- NOTE | 2018-02-26 23:30 | CP.PCM.CON ---
History of Present Illness - History of Present Illness History of Present Illness: 67 year old man with following chronic medical problems 1. Atrial fibrillation - paroxysmal 2. Acute on chronic systolic CHF 3. HTN is chronic and stable Review of Systems - Review of Systems All systems: reviewed and no additional remarkable complaints except Past Patient History - Infectious Disease Hx of Infectious Diseases: None - Past Medical History & Family History Past Medical History?: Yes - Past Social History Smoking Status: Never Smoked - CARDIAC Hx Congestive Heart Failure: Yes Hx Hypertension: Yes Hx Pacemaker: No - PULMONARY Hx Asthma: Yes - NEUROLOGICAL Hx Neurological Disorder: No - HEENT Hx HEENT Problems: No - RENAL Hx Chronic Kidney Disease: No - ENDOCRINE/METABOLIC Hx Endocrine Disorders: Yes Hx Diabetes Mellitus Type 2: Yes - HEMATOLOGICAL/ONCOLOGICAL Hx Blood Disorders: No - INTEGUMENTARY Hx Dermatological Problems: No - MUSCULOSKELETAL/RHEUMATOLOGICAL Hx Musculoskeletal Disorders: Yes Hx Falls: No - GASTROINTESTINAL Hx Gastrointestinal Disorders: Yes Hx Gastroesophageal Reflux: Yes - GENITOURINARY/GYNECOLOGICAL Hx Genitourinary Disorders: No - PSYCHIATRIC Hx Anxiety: Yes Hx Substance Use: No - SURGICAL HISTORY Hx Surgeries: Yes Hx Orthopedic Surgery: Yes (left leg) - ANESTHESIA Hx Anesthesia: Yes Hx Anesthesia Reactions: No Meds Allergies/Adverse Reactions: Allergies Allergy/AdvReac Type Severity Reaction Status Date / Time Penicillins Allergy ITCHING Verified 07/13/16 09:34 - Medications Medications: Current Medications Albuterol (Ventolin Hfa 90 Mcg/Actuation (8 G)) 2 puff IH RQ6 [facility] Last Admin: 02/26/18 20:08 Dose: 2 inhaler Aspirin (Ecotrin) 81 mg PO DAILY [facility] Last Admin: 02/26/18 10:06 Dose: 81 mg Clopidogrel Bisulfate (Plavix) 75 mg PO DAILY [facility] Last Admin: 02/26/18 10:05 Dose: 75 mg Diltiazem HCl (Cardizem) 60 mg PO TID [facility] Last Admin: 02/26/18 18:06 Dose: Not Given Enoxaparin Sodium (Lovenox) 40 mg SC DAILY [facility] Last Admin: 02/26/18 10:06 Dose: 40 mg Furosemide (Lasix) 40 mg PO BID [facility] Last Admin: 02/26/18 18:07 Dose: Not Given Gabapentin (Neurontin) 400 mg PO TID [facility] Last Admin: 02/26/18 17:59 Dose: 400 mg Montelukast Sodium (Singulair) 10 mg PO DAILY [facility] Last Admin: 02/26/18 10:05 Dose: 10 mg Sacubitril/Valsartan (Entresto 49 Mg-51 Mg) 1 tab PO BID [facility] Last Admin: 02/26/18 18:10 Dose: 1 tab Temazepam (Restoril) 30 mg PO HS PRN PRN Reason: Insomnia Last Admin: 02/26/18 21:26 Dose: 30 mg Physical Exam - Constitutional Appears: Well, Non-toxic - Head Exam Head Exam: ATRAUMATIC, NORMAL INSPECTION - Eye Exam Eye Exam: PERRL. absent: Scleral icterus - ENT Exam ENT Exam: Mucous Membranes Moist, Normal Exam - Neck Exam Neck exam: Positive for: Full Rom. Negative for: Lymphadenopathy - Respiratory Exam Respiratory Exam: Clear to Auscultation Bilateral, NORMAL BREATHING PATTERN - Cardiovascular Exam Cardiovascular Exam: Irregular Rhythm, RRR, +S1, +S2. absent: JVD - GI/Abdominal Exam GI & Abdominal Exam: Normal Bowel Sounds. absent: Organomegaly - Extremities Exam Extremities exam: Positive for: pedal pulses present Additional comments: Venous stasis dermatitis - Neurological Exam Neurological exam: CN II-XII Intact, Oriented x3 - Psychiatric Exam Psychiatric exam: Normal Affect, Normal Mood Results - Vital Signs Recent Vital Signs: Last Vital Signs Temp 97.6 F 02/26/18 15:00 Pulse 86 02/26/18 16:00 Resp 20 02/26/18 15:00 BP 95/61 L 02/26/18 15:00 Pulse Ox 99 02/26/18 15:00 - Labs Result Diagrams: 02/25/18 17:49 02/25/18 17:49 Assessment & Plan - Assessment and Plan (Free Text) Assessment: 67 year old man with right leg pain which he reporting is worse with exertion - HANNY; Arterial duplex this can be performed as an outpatient Chronic systolic CHF - Coreg, Entresto, Add aldactone Atrial fibrillation - Stop plavix and start NOAC for CVA prophylaxsis I prefer elaquis; Change cardizem to Coreg - Date & Time Date: 02/26/18 Time: 09:25
[2018-02-27] MEDS: Albuterol HFA 90 mcg/actuation (8 g) IH SCH ×4 (01:42→20:42)
--- NOTE | 2018-02-27 07:55 | CP.PCM.PN ---
Subjective - Date & Time of Evaluation Date of Evaluation: 02/27/18 Time of Evaluation: 07:54 - Subjective Subjective: Events reviewed. Still in Afib Objective - Vital Signs/Intake and Output Vital Signs (last 24 hours): Temp Pulse Resp BP Pulse Ox 97.0 F L 94 H 20 98/60 L 99 02/27/18 05:18 02/27/18 05:18 02/27/18 05:18 02/27/18 05:18 02/27/18 05:18 Intake and Output: 02/27/18 02/27/18 06:59 18:59 Intake Total 400 Output Total 300 Balance 100 - Medications Medications: Current Medications Albuterol (Ventolin Hfa 90 Mcg/Actuation (8 G)) 2 puff IH RQ6 [facility] Last Admin: 02/27/18 07:40 Dose: 2 inhaler Aspirin (Ecotrin) 81 mg PO DAILY [facility] Last Admin: 02/26/18 10:06 Dose: 81 mg Clopidogrel Bisulfate (Plavix) 75 mg PO DAILY [facility] Last Admin: 02/26/18 10:05 Dose: 75 mg Diltiazem HCl (Cardizem) 60 mg PO TID [facility] Last Admin: 02/26/18 18:06 Dose: Not Given Enoxaparin Sodium (Lovenox) 40 mg SC DAILY [facility] Last Admin: 02/26/18 10:06 Dose: 40 mg Furosemide (Lasix) 40 mg PO BID [facility] Last Admin: 02/26/18 18:07 Dose: Not Given Gabapentin (Neurontin) 400 mg PO TID [facility] Last Admin: 02/26/18 17:59 Dose: 400 mg Montelukast Sodium (Singulair) 10 mg PO DAILY [facility] Last Admin: 02/26/18 10:05 Dose: 10 mg Sacubitril/Valsartan (Entresto 49 Mg-51 Mg) 1 tab PO BID [facility] Last Admin: 02/26/18 18:10 Dose: 1 tab Temazepam (Restoril) 30 mg PO HS PRN PRN Reason: Insomnia Last Admin: 02/26/18 21:26 Dose: 30 mg - Labs Labs: 02/25/18 17:49 02/25/18 17:49 PT 12.9 SECONDS (9.7-12.2) H 02/25/18 17:49 INR 1.1 02/25/18 17:49 APTT 25 SECONDS (21-34) 02/25/18 17:49 Assessment and Plan - Assessment and Plan (Free Text) Assessment: 2D echo images viewed by myself: Severe LV dysfunction, restrictive diastolic physiology suggests elevated left atrial pressure 67 year old man with right leg pain which he reporting is worse with exertion - HANNY; Arterial duplex this can be performed as an outpatient Chronic systolic CHF - Coreg, Entresto, Add aldactone Atrial fibrillation - Stop plavix and start NOAC for CVA prophylaxsis I prefer elaquis; Change cardizem to Coreg
[2018-02-27] MEDS: Sacubitril/Valsartan 49-51 Tab PO SCH ×2 (09:40→17:20)
[2018-02-27] MEDS: Enoxaparin 40 mg Syringe SC SCH (09:41)
[2018-02-27 21:26] LABS: CK-MB 1.05 ng/mL (0.0-3.38)
--- NOTE | 2018-02-27 21:40 | CP.PCM.PN ---
Subjective - Date & Time of Evaluation Date of Evaluation: 02/27/18 Time of Evaluation: 21:39 - Subjective Subjective: paged at 8:30PM for 8 runs of v-tach EKG unchanged from previous that was ordered ROXANNE; troponin from .027 to less than .0125 on repeat patient to remain in current setting [place] PGY2 Objective - Vital Signs/Intake and Output Vital Signs (last 24 hours): Temp Pulse Resp BP Pulse Ox 97.3 F L 93 H 22 94/65 L 98 02/27/18 15:19 02/27/18 16:00 02/27/18 15:19 02/27/18 15:19 02/27/18 15:19 - Medications Medications: Current Medications Acetaminophen (Tylenol 325mg Tab) 650 mg PO Q6 PRN PRN Reason: Headache Last Admin: 02/27/18 19:58 Dose: 650 mg Albuterol (Ventolin Hfa 90 Mcg/Actuation (8 G)) 2 puff IH RQ6 [facility] Last Admin: 02/27/18 20:42 Dose: 2 inhaler Aspirin (Ecotrin) 81 mg PO DAILY [facility] Last Admin: 02/26/18 10:06 Dose: 81 mg Clopidogrel Bisulfate (Plavix) 75 mg PO DAILY [facility] Last Admin: 02/27/18 09:40 Dose: 75 mg Diltiazem HCl (Cardizem) 60 mg PO TID [facility] Last Admin: 02/27/18 17:27 Dose: Not Given Enoxaparin Sodium (Lovenox) 40 mg SC DAILY [facility] Last Admin: 02/27/18 09:41 Dose: 40 mg Furosemide (Lasix) 40 mg PO BID [facility] Last Admin: 02/27/18 17:27 Dose: Not Given Gabapentin (Neurontin) 400 mg PO TID [facility] Last Admin: 02/27/18 17:20 Dose: 400 mg Montelukast Sodium (Singulair) 10 mg PO DAILY [facility] Last Admin: 02/27/18 09:41 Dose: 10 mg Sacubitril/Valsartan (Entresto 49 Mg-51 Mg) 1 tab PO BID [facility] Last Admin: 02/27/18 17:20 Dose: 1 tab Temazepam (Restoril) 30 mg PO HS PRN PRN Reason: Insomnia Last Admin: 02/26/18 21:26 Dose: 30 mg - Labs Labs: 02/25/18 17:49 02/25/18 17:49 PT 12.9 SECONDS (9.7-12.2) H 02/25/18 17:49 INR 1.1 02/25/18 17:49 APTT 25 SECONDS (21-34) 02/25/18 17:49
[2018-02-28] MEDS: Albuterol HFA 90 mcg/actuation (8 g) IH SCH ×4 (01:20→21:13)
--- NOTE | 2018-02-28 07:51 | CP.PCM.PN ---
Subjective - Date & Time of Evaluation Date of Evaluation: 02/28/18 Time of Evaluation: 07:45 - Subjective Subjective: PGY 2 Medicine Note- Dr. Gray's service Patient seen and examined in no apparent acute distress. Patient states that he legs have "no power". He states that he has been feeling this way since yesterday. Per nursing, patient has been in atrial fibrillation on the alarm security or surveillance monitor. It was unclear whether he also had an episode of transient v- tach as well. Currently, patient denies chest pain, palpitations, subjective fevers or chills, nausea, vomiting, diarrhea, shortness of breath at this time. Objective - Vital Signs/Intake and Output Vital Signs (last 24 hours): Temp Pulse Resp BP Pulse Ox 97.5 F L 97 H 20 109/75 98 02/28/18 07:05 02/28/18 07:05 02/28/18 07:05 02/28/18 07:05 02/28/18 07:05 Intake and Output: 02/28/18 02/28/18 06:59 18:59 Intake Total 480 Output Total 275 Balance 205 - Medications Medications: Current Medications Acetaminophen (Tylenol 325mg Tab) 650 mg PO Q6 PRN PRN Reason: Headache Last Admin: 02/27/18 19:58 Dose: 650 mg Albuterol (Ventolin Hfa 90 Mcg/Actuation (8 G)) 2 puff IH RQ6 [facility] Last Admin: 02/28/18 01:20 Dose: Not Given Aspirin (Ecotrin) 81 mg PO DAILY [facility] Last Admin: 02/26/18 10:06 Dose: 81 mg Carvedilol (Coreg) 6.25 mg PO BID [facility] Clopidogrel Bisulfate (Plavix) 75 mg PO DAILY [facility] Last Admin: 02/27/18 09:40 Dose: 75 mg Enoxaparin Sodium (Lovenox) 40 mg SC DAILY [facility] Last Admin: 02/27/18 09:41 Dose: 40 mg Furosemide (Lasix) 40 mg PO BID [facility] Last Admin: 02/27/18 17:27 Dose: Not Given Gabapentin (Neurontin) 400 mg PO TID [facility] Last Admin: 02/27/18 17:20 Dose: 400 mg Montelukast Sodium (Singulair) 10 mg PO DAILY [facility] Last Admin: 02/27/18 09:41 Dose: 10 mg Nitroglycerin (Nitrostat Sl Tab) 0.4 mg SL Q5M PRN PRN Reason: anginal chest pain Sacubitril/Valsartan (Entresto 49 Mg-51 Mg) 1 tab PO BID [facility] Last Admin: 02/27/18 17:20 Dose: 1 tab Temazepam (Restoril) 30 mg PO HS PRN PRN Reason: Insomnia Last Admin: 02/27/18 22:15 Dose: 30 mg - Labs Labs: 02/25/18 17:49 02/25/18 17:49 PT 12.9 SECONDS (9.7-12.2) H 02/25/18 17:49 INR 1.1 02/25/18 17:49 APTT 25 SECONDS (21-34) 02/25/18 17:49 - Constitutional Appears: Non-toxic, No Acute Distress - Head Exam Head Exam: ATRAUMATIC, NORMAL INSPECTION - Eye Exam Eye Exam: EOMI, Normal appearance Pupil Exam: NORMAL ACCOMODATION - ENT Exam ENT Exam: Mucous Membranes Moist - Cardiovascular Exam Cardiovascular Exam: Irregular Rhythm, +S1, +S2 - GI/Abdominal Exam GI & Abdominal Exam: Soft, Normal Bowel Sounds - Extremities Exam Extremities Exam: Full ROM, Normal Capillary Refill - Back Exam Back Exam: Full ROM - Neurological Exam Neurological Exam: Alert, Awake, Oriented x3 - Psychiatric Exam Psychiatric exam: Normal Affect, Normal Mood - Skin Skin Exam: Dry, Warm Assessment and Plan - Assessment and Plan (Free Text) Assessment: Atrial Fibrillation On Telemetry Was not rate controlled. Switched from Cardizem to Coreg. Monitor Switched to Eliquis 5 mg PO BID F/U Cardiology (Dr. Singh) recommendations CHF exacerbation , acute on chronic systolic dysfunction ECHO results show EF of ~18%, wall motion abnormalities, severe Pulm HTN Dr. Zhao Cardiology consulted for med optimization/lifevest candidate - Patient [facility] showed clear coronaries Patient refused lifevest and AICD on last admission (February 07 - February 10, 2018). Private abnormal psychology teacher is Dr. Esdras Pham BNP 8110 on current admission. 1540 on prior admission Lasix 40mg PO BID Entresto 24/26mg PO BID ASA 81mg PO daily Started Aldactone Leg Pain Physical Therapy- Recommendations for Home physical therapy with services HTN (hypertension) Lasix 20 mg PO BID Entresto 24/26mg PO BID Monitor CAD ASA 81 mg PO daily Switched from Plavix to Eliquis Diabetes mellitus w neuropathy ISS Accuchecks Gabapentin 400 mg PO TID Insomnia Restoril 30mg PO HS Prophylactic measure Lovenox SC daily Eliquis 5 mg PO BID SCD[facility] No indication for GI prophylaxis at this time. Monitor for signs of improvement at this point. F/U cardiology recommendations at this time. Discussed with attending. All management and planning per Dr. Gray
[2018-02-28 08:46] LABS: ALB/GLOB RATIO 1.3 (1.0-2.1); ALBUMIN 3.3 g/dL (3.5-5.0); ALT/SGPT 49 U/L (21-72); AST/SGOT 34 U/L (17-59); BLOOD UREA NITROGEN 30 mg/dL (9-20); CALCIUM 8.6 mg/dl (8.6-10.4); GFR AFRICAN-AMERICAN > 60; GFR NON-AFRICAN AMERICAN > 60
--- NOTE | 2018-02-28 10:33 | PN ---
DATE: 02/27/2018 SUBJECTIVE: The patient is complaining of headache will give tylenol, heart rate is 100. Consult cardiology. Dee Gray MD
[2018-02-28] MEDS: Sacubitril/Valsartan 49-51 Tab PO SCH ×2 (10:49→18:34)
[2018-02-28] MEDS: Enoxaparin 40 mg Syringe SC SCH (10:50)
--- NOTE | 2018-02-28 11:04 | HP ---
HISTORY OF PRESENT ILLNESS: The patient was admitted to the hospital with chief complaint of chest pain, weakness, fatigue, atrial fibrillation ____. The patient is a smoker. PHYSICAL EXAMINATION: GENERAL: The patient is awake, alert, oriented. VITAL SIGNS: Temperature 98, pulse 90. HEENT: Within normal limits. NECK: Supple. CHEST: Symmetrical. HEART: Irregular. ABDOMEN: Soft. EXTREMITIES: No edema. IMPRESSION: Rule out acute coronary syndrome. The patient is on bed rest, supportive care, cardiac enzymes, cardiology evaluation. Dee Gray MD
--- NOTE | 2018-02-28 19:51 | CP.PCM.PN ---
Subjective - Date & Time of Evaluation Date of Evaluation: 02/28/18 Time of Evaluation: 10:45 - Subjective Subjective: No resting SOB No CP HR remains IRREG IRREG Objective - Vital Signs/Intake and Output Vital Signs (last 24 hours): Temp Pulse Resp BP Pulse Ox 97.4 F L 104 H 22 100/70 99 02/28/18 15:49 02/28/18 16:00 02/28/18 15:49 02/28/18 18:34 02/28/18 15:49 Intake and Output: 02/28/18 03/01/18 18:59 06:59 Intake Total 400 Balance 400 - Medications Medications: Current Medications Acetaminophen (Tylenol 325mg Tab) 650 mg PO Q6 PRN PRN Reason: Headache Last Admin: 02/28/18 14:47 Dose: 650 mg Albuterol (Ventolin Hfa 90 Mcg/Actuation (8 G)) 2 puff IH RQ6 [facility] Last Admin: 02/28/18 13:42 Dose: 2 puff Apixaban (Eliquis) 5 mg PO BID [facility] Last Admin: 02/28/18 18:34 Dose: 5 mg Aspirin (Ecotrin) 81 mg PO DAILY [facility] Last Admin: 02/28/18 10:50 Dose: 81 mg Carvedilol (Coreg) 6.25 mg PO BID [facility] Last Admin: 02/28/18 18:34 Dose: 6.25 mg Enoxaparin Sodium (Lovenox) 40 mg SC DAILY [facility] Last Admin: 02/28/18 10:50 Dose: 40 mg Furosemide (Lasix) 40 mg PO BID [facility] Last Admin: 02/28/18 18:34 Dose: 40 mg Gabapentin (Neurontin) 400 mg PO TID [facility] Last Admin: 02/28/18 18:34 Dose: 400 mg Montelukast Sodium (Singulair) 10 mg PO DAILY [facility] Last Admin: 02/28/18 10:50 Dose: 10 mg Nitroglycerin (Nitrostat Sl Tab) 0.4 mg SL Q5M PRN PRN Reason: anginal chest pain Sacubitril/Valsartan (Entresto 49 Mg-51 Mg) 1 tab PO BID [facility] Last Admin: 02/28/18 18:34 Dose: 1 tab Spironolactone (Aldactone) 25 mg PO BID [facility] Last Admin: 02/28/18 18:34 Dose: 25 mg Temazepam (Restoril) 30 mg PO HS PRN PRN Reason: Insomnia Last Admin: 02/27/18 22:15 Dose: 30 mg - Labs Labs: 02/25/18 17:49 02/28/18 08:20 PT 12.9 SECONDS (9.7-12.2) H 02/25/18 17:49 INR 1.1 02/25/18 17:49 APTT 25 SECONDS (21-34) 02/25/18 17:49 - Constitutional Appears: No Acute Distress - Head Exam Head Exam: ATRAUMATIC, NORMAL INSPECTION, NORMOCEPHALIC - Eye Exam Eye Exam: EOMI, Normal appearance, PERRL - ENT Exam ENT Exam: Mucous Membranes Moist, Normal Exam - Neck Exam Neck Exam: Full ROM, Normal Inspection (MIld JVD) - Respiratory Exam Respiratory Exam: Clear to Ausculation Bilateral, NORMAL BREATHING PATTERN. absent: Rhonchi, Wheezes - Cardiovascular Exam Cardiovascular Exam: Irregular Rhythm, JVD, +S1, +S2. absent: Murmur - GI/Abdominal Exam GI & Abdominal Exam: Soft, Normal Bowel Sounds. absent: Tenderness, Organomegaly - Extremities Exam Extremities Exam: Full ROM, Joint Swelling. absent: Calf Tenderness, Pedal Edema Additional comments: weak DP/PT B/L scattered varicose veins - Neurological Exam Neurological Exam: Alert, Awake - Psychiatric Exam Psychiatric exam: Normal Affect, Normal Mood - Skin Skin Exam: Intact, Warm Assessment and Plan - Assessment and Plan (Free Text) Assessment: 2D echo images viewed by myself: Severe LV dysfunction, restrictive diastolic physiology suggests elevated left atrial pressure IMP/PLAN meds: Acetaminophen (Tylenol 325mg Tab) 650 mg PO Q6 PRN PRN Reason: Headache Last Admin: 02/28/18 14:47 Dose: 650 mg Albuterol (Ventolin Hfa 90 Mcg/Actuation (8 G)) 2 puff IH RQ6 [facility] Last Admin: 02/28/18 13:42 Dose: 2 puff Apixaban (Eliquis) 5 mg PO BID [facility] Last Admin: 02/28/18 18:34 Dose: 5 mg Aspirin (Ecotrin) 81 mg PO DAILY [facility] Last Admin: 02/28/18 10:50 Dose: 81 mg Carvedilol (Coreg) 6.25 mg PO BID [facility] Last Admin: 02/28/18 18:34 Dose: 6.25 mg Enoxaparin Sodium (Lovenox) 40 mg SC DAILY [facility] Last Admin: 02/28/18 10:50 Dose: 40 mg Furosemide (Lasix) 40 mg PO BID [facility] Nitroglycerin (Nitrostat Sl Tab) 0.4 mg SL Q5M PRN PRN Reason: anginal chest pain Sacubitril/Valsartan (Entresto 49 Mg-51 Mg) 1 tab PO BID [facility] Last Admin: 02/28/18 18:34 Dose: 1 tab Spironolactone (Aldactone) 25 mg PO BID [facility] Last Admin: 02/28/18 18:34 Dose: 25 mg >> 67 year old man with right leg pain which he reporting is worse with exertion - HANNY; Arterial duplex and venous reflux scans can be performed as an outpatient with us after d/c. >> Chronic systolic CHF - > Coreg, Entresto, aldactone > Lasix to maintain euvolemia: ---> Keep Mg >2; monitor K+ and creat >> Atrial fibrillation - [id number] >3 - agree with eliquis 5 BID - Coreg for rate control
[2018-03-01 00:39] VITALS: RESP 20
[2018-03-01] MEDS: Albuterol HFA 90 mcg/actuation (8 g) IH SCH ×3 (01:26→13:15)
[2018-03-01 08:46] VITALS: O2SAT 94
[2018-03-01 09:06] LABS: BASO % 0.9 % (0.0-2.0); EOS % 1.6 % (0.0-4.0); HEMOGLOBIN 13.9 g/dL (12.0-18.0); LYMPH # 1.3 K/uL (1.0-4.3); LYMPH % 45.5 % (20.0-40.0); MEAN CORPUSCULAR HEMOGLOBIN 32.4 pg (27.0-31.0); MEAN CORPUSCULAR HGB CONC 34.1 g/dL (33.0-37.0); MONO # 0.3 K/uL (0.0-0.8); MONO % 9.9 % (0.0-10.0); NEUT # 1.2 K/uL (1.8-7.0); NEUT % 42.1 % (50.0-75.0); NRBC % 0.1 % (0.0-2.0); RBC 4.3 Mil/uL (4.40-5.90); RED CELL DISTRIBUTION WIDTH 17.3 % (11.5-14.5); WHITE BLOOD COUNT 2.8 K/uL (4.8-10.8)
[2018-03-01 09:15] LABS: ALB/GLOB RATIO 1.4 (1.0-2.1); ALBUMIN 3.8 g/dL (3.5-5.0); CALCIUM 8.9 mg/dl (8.6-10.4)
[2018-03-01] MEDS: Sacubitril/Valsartan 49-51 Tab PO SCH (09:47)
[2018-03-01] MEDS: Enoxaparin 40 mg Syringe SC SCH (09:47)
--- NOTE | 2018-03-01 10:28 | CP.PCM.PN ---
Subjective - Date & Time of Evaluation Date of Evaluation: 03/01/18 Time of Evaluation: 10:26 - Subjective Subjective: No ADHF No SOB NO LE edema No active cardiac complaints + mild bronchitis sx's: no cough or fever Objective - Vital Signs/Intake and Output Vital Signs (last 24 hours): Temp Pulse Resp BP Pulse Ox 97.4 F L 85 20 115/82 94 L 03/01/18 08:48 03/01/18 09:45 03/01/18 08:43 03/01/18 09:47 03/01/18 08:43 Intake and Output: 03/01/18 03/01/18 06:59 18:59 Intake Total 240 Output Total 600 Balance -360 - Medications Medications: Current Medications Acetaminophen (Tylenol 325mg Tab) 650 mg PO Q6 PRN PRN Reason: Headache Last Admin: 03/01/18 08:48 Dose: 650 mg Albuterol (Ventolin Hfa 90 Mcg/Actuation (8 G)) 2 puff IH RQ6 [facility] Last Admin: 03/01/18 08:46 Dose: 2 puff Apixaban (Eliquis) 5 mg PO BID [facility] Last Admin: 03/01/18 09:47 Dose: 5 mg Aspirin (Ecotrin) 81 mg PO DAILY [facility] Last Admin: 03/01/18 09:46 Dose: 81 mg Carvedilol (Coreg) 6.25 mg PO BID [facility] Last Admin: 03/01/18 09:46 Dose: 6.25 mg Enoxaparin Sodium (Lovenox) 40 mg SC DAILY [facility] Last Admin: 03/01/18 09:47 Dose: 40 mg Furosemide (Lasix) 40 mg PO BID [facility] Last Admin: 03/01/18 09:47 Dose: 40 mg Gabapentin (Neurontin) 400 mg PO TID [facility] Last Admin: 03/01/18 09:47 Dose: 400 mg Montelukast Sodium (Singulair) 10 mg PO DAILY [facility] Last Admin: 03/01/18 09:50 Dose: 10 mg Nitroglycerin (Nitrostat Sl Tab) 0.4 mg SL Q5M PRN PRN Reason: anginal chest pain Sacubitril/Valsartan (Entresto 49 Mg-51 Mg) 1 tab PO BID [facility] Last Admin: 03/01/18 09:47 Dose: 1 tab Spironolactone (Aldactone) 25 mg PO BID [facility] Last Admin: 03/01/18 09:46 Dose: 25 mg Temazepam (Restoril) 30 mg PO HS PRN PRN Reason: Insomnia Last Admin: 02/28/18 21:25 Dose: 30 mg - Labs Labs: 03/01/18 08:50 03/01/18 08:50 PT 12.9 SECONDS (9.7-12.2) H 02/25/18 17:49 INR 1.1 02/25/18 17:49 APTT 25 SECONDS (21-34) 02/25/18 17:49 - Constitutional Appears: No Acute Distress - Head Exam Head Exam: ATRAUMATIC, NORMAL INSPECTION, NORMOCEPHALIC - Eye Exam Eye Exam: EOMI, Normal appearance, PERRL - ENT Exam ENT Exam: Mucous Membranes Moist, Normal Oropharynx - Neck Exam Neck Exam: Full ROM. absent: Tenderness - Respiratory Exam Respiratory Exam: Clear to Ausculation Bilateral, NORMAL BREATHING PATTERN. absent: Rhonchi, Wheezes - Cardiovascular Exam Cardiovascular Exam: Irregular Rhythm, +S1, +S2. absent: Murmur - GI/Abdominal Exam GI & Abdominal Exam: Normal Bowel Sounds. absent: Organomegaly, Pulsatile Mass , Rebound - Extremities Exam Extremities Exam: Full ROM. absent: Calf Tenderness, Normal Inspection (LE varicose veins B/L, no ulcers or cyanosis), Pedal Edema - Neurological Exam Neurological Exam: Alert, Awake, Oriented x3 - Psychiatric Exam Psychiatric exam: Normal Affect, Normal Mood Assessment and Plan - Assessment and Plan (Free Text) Assessment: 2D echo images viewed by myself: Severe LV dysfunction, restrictive diastolic physiology suggests elevated left atrial pressure IMP/PLAN meds: Acetaminophen (Tylenol 325mg Tab) 650 mg PO Q6 PRN PRN Reason: Headache Last Admin: 02/28/18 14:47 Dose: 650 mg Albuterol (Ventolin Hfa 90 Mcg/Actuation (8 G)) 2 puff IH RQ6 [facility] Last Admin: 02/28/18 13:42 Dose: 2 puff Apixaban (Eliquis) 5 mg PO BID [facility] Last Admin: 02/28/18 18:34 Dose: 5 mg Aspirin (Ecotrin) 81 mg PO DAILY [facility] Last Admin: 02/28/18 10:50 Dose: 81 mg Carvedilol (Coreg) 6.25 mg PO BID [facility] Last Admin: 02/28/18 18:34 Dose: 6.25 mg Enoxaparin Sodium (Lovenox) 40 mg SC DAILY [facility] Last Admin: 02/28/18 10:50 Dose: 40 mg Furosemide (Lasix) 40 mg PO BID [facility] Nitroglycerin (Nitrostat Sl Tab) 0.4 mg SL Q5M PRN PRN Reason: anginal chest pain Sacubitril/Valsartan (Entresto 49 Mg-51 Mg) 1 tab PO BID [facility] Last Admin: 02/28/18 18:34 Dose: 1 tab Spironolactone (Aldactone) 25 mg PO BID [facility] Last Admin: 02/28/18 18:34 Dose: 25 mg >> 67 year old man with right leg pain which he reporting is worse with exertion - HANNY; Arterial duplex and venous reflux scans can be performed as an outpatient with us after d/c. >> Chronic systolic CHF - > Coreg, Entresto, aldactone > Lasix to maintain euvolemia: ---> Keep Mg >2; monitor K+ and creat >> Atrial fibrillation - [id number] >3 - agree with eliquis 5 BID - Coreg for rate control D/C planning
--- NOTE | 2018-03-01 12:10 | CP.PCM.PN ---
Subjective - Date & Time of Evaluation Date of Evaluation: 03/01/18 Time of Evaluation: 11:00 - Subjective Subjective: [employer] NOT[employer] Objective - Vital Signs/Intake and Output Vital Signs (last 24 hours): Temp Pulse Resp BP Pulse Ox 97.4 F L 85 20 115/82 94 L 03/01/18 08:48 03/01/18 09:45 03/01/18 08:43 03/01/18 09:47 03/01/18 08:43 Intake and Output: 03/01/18 03/01/18 06:59 18:59 Intake Total 240 Output Total 600 Balance -360 - Medications Medications: Current Medications Acetaminophen (Tylenol 325mg Tab) 650 mg PO Q6 PRN PRN Reason: Headache Last Admin: 03/01/18 08:48 Dose: 650 mg Albuterol (Ventolin Hfa 90 Mcg/Actuation (8 G)) 2 puff IH RQ6 [facility] Last Admin: 03/01/18 08:46 Dose: 2 puff Apixaban (Eliquis) 5 mg PO BID [facility] Last Admin: 03/01/18 09:47 Dose: 5 mg Aspirin (Ecotrin) 81 mg PO DAILY [facility] Last Admin: 03/01/18 09:46 Dose: 81 mg Carvedilol (Coreg) 6.25 mg PO BID [facility] Last Admin: 03/01/18 09:46 Dose: 6.25 mg Enoxaparin Sodium (Lovenox) 40 mg SC DAILY [facility] Last Admin: 03/01/18 09:47 Dose: 40 mg Furosemide (Lasix) 40 mg PO BID [facility] Last Admin: 03/01/18 09:47 Dose: 40 mg Gabapentin (Neurontin) 400 mg PO TID [facility] Last Admin: 03/01/18 09:47 Dose: 400 mg Montelukast Sodium (Singulair) 10 mg PO DAILY [facility] Last Admin: 03/01/18 09:50 Dose: 10 mg Nitroglycerin (Nitrostat Sl Tab) 0.4 mg SL Q5M PRN PRN Reason: anginal chest pain Sacubitril/Valsartan (Entresto 49 Mg-51 Mg) 1 tab PO BID [facility] Last Admin: 03/01/18 09:47 Dose: 1 tab Spironolactone (Aldactone) 25 mg PO BID [facility] Last Admin: 03/01/18 09:46 Dose: 25 mg Temazepam (Restoril) 30 mg PO HS PRN PRN Reason: Insomnia Last Admin: 02/28/18 21:25 Dose: 30 mg - Labs Labs: 03/01/18 08:50 03/01/18 08:50 PT 12.9 SECONDS (9.7-12.2) H 02/25/18 17:49 INR 1.1 02/25/18 17:49 APTT 25 SECONDS (21-34) 02/25/18 17:49 Assessment and Plan - Assessment and Plan (Free Text) Assessment: a/p 67 YR old male with pmhx of Anxiety, Asthma, CHF, EF 18% HTN, Hyperlipidemia admitted with chest pain/ afib rate controlled with coreg and started on eliquis seen by Dr. Rome hsu today, stable for discharge home today and f/u with his office in [address] Barakat today, f/u with his office on Discharge plan discussed with patient, who understands and agrees with plan RX obtained from pharmacy and given to patient before discharge patient instructed to retruns to ED if symptoms returns
--- NOTE | 2018-03-01 12:10 | PCM.HF ---
Heart Failure Core Measure - Heart Failure Ejection Fraction: Less Than 40 % KENN Inhibitor Prescribed: Yes Beta-Tony Prescribed: Carvedilol Angiotensin II Receptor Tony Prescribed: Yes AnticoagulationTherapy for Atrial Fibrillation/Atrialflutter: Yes Aldosterone Antagonist Prescribed: Yes Hydralazine Nitrate Prescribed: No Contraindication/Reason for not providing: bp running low 100,s Implantable Cardioverter Defibrillator Therapy: No Contraindication/Reason for not providing: pt refused/ medical management as per cardio Cardiac Resynchronization Therapy Prescribed: No Contraindication/Reason for not providing: pt refused / medical management and frequent f/u as per cardio - Follow up Will be discharged to: Home Follow Up Date (must be within 7 days from discharge): 03/03/18 Follow Up Time: 09:00
[2018-03-01 13:07] VITALS: BP 103/77; PULSE 75; TEMP 97.8
--- NOTE | 2018-03-02 08:29 | CARD ---
APPROVED REPORT EKG Measurement Heart [id number] <Conclusion> Atrial fibrillation with a competing junctional pacemaker T wave abnormality, consider lateral ischemia Abnormal ECG
--- NOTE | 2018-03-06 11:01 | CARD ---
APPROVED REPORT EKG Measurement Heart [id number] <Conclusion> Atrial fibrillation with rapid ventricular response with premature ventricular or aberrantly conducted complexes ST & T wave abnormality, consider lateral ischemia Abnormal ECG
--- NOTE | 2018-03-11 07:06 | DS ---
The patient was admitted to the hospital with chief complaint of generalized weakness, fatigue, tiredness. The patient was admitted, placed on bedrest, supportive care. The patient showed gradual improvement. The patient discharged, to be followed up as outpatient. Dee Gray MD
== END 2018-03-01 16:49 | disposition home or self-care (01) | DRG 308 ==
LOC: C.ER 17:08 → C.9E 18:17 → C.6T 20:20
PROVIDERS: ADMIT Internal Medicine Pulmonary Disease; ATTEND Internal Medicine Pulmonary Disease
DX: I48.0 Paroxysmal atrial fibrillation (principal); I50.23 Acute on chronic systolic (congestive) heart failure; I11.0 Hypertensive heart disease with heart failure; I47.2 Ventricular tachycardia; E11.40 Type 2 diabetes mellitus with diabetic neuropathy, unspecified; E78.5 Hyperlipidemia, unspecified; F17.210 Nicotine dependence, cigarettes, uncomplicated; F41.9 Anxiety disorder, unspecified; I27.20 Pulmonary hypertension, unspecified; I25.119 Atherosclerotic heart disease of native coronary artery with unspecified angina pectoris; K21.9 Gastro-esophageal reflux disease without esophagitis; G47.00 Insomnia, unspecified; J45.909 Unspecified asthma, uncomplicated; Z79.01 Long term (current) use of anticoagulants

== ENCOUNTER 2018-08-03 13:32 | Inpatient (IN) | payer MEDICARE, MEDICAID ==
[2018-08-03 13:32] VITALS: PULSE 130; BMI 24.3
--- NOTE | 2018-08-03 15:25 | C.PDOC ---
History Of Present Illness 67 y/o male with PMHx of chronic asthma, A Fib, and cardiomegaly, presents complaining that yesterday he began feeling short of breath. Today at 5:00am he developed chest pain, described as tightness, associated with difficulty breat salima. No diaphoresis or nausea. Patient notes the symptoms resolved spontaneously. Also states his legs feel weak and fatigued, no specific pain or swelling. Of note patient was recently hospitalized in June and switched from digoxin to amiodarone for rate control. Patient was discharged home on a miodarone as well as Lasix 40 mg per day. Time Seen by Provider: 08/03/18 14:21 Chief Complaint (Nursing): Chest Pain History Per: Patient History/Exam Limitations: no limitations Onset/Duration Of Symptoms: Hrs Current Symptoms Are (Timing): Better Past Medical History Reviewed: Historical Data, Nursing Documentation, Vital Signs Vital Signs: Last Vital Signs Temp 98.2 F 08/03/18 13:45 Pulse 111 H 08/03/18 13:45 Resp 20 08/03/18 13:45 BP 106/77 08/03/18 13:45 Pulse Ox 99 08/03/18 13:45 - Medical History PMH: Anxiety, Asthma, Atrial Fibrillation, Cardia Arrhythmia (afib dx 1 mo ago), CHF, COPD, HTN, Hyperlipidemia, Peripheral Edema (ble +1 pitting) Denies: Chronic Kidney Disease Surgical History: Denies: Pacemaker Family History: States: Unknown Family Hx - Social History Hx Tobacco Use: No Hx Alcohol Use: No Hx Substance Use: No - Immunization History Hx Tetanus Toxoid Vaccination: No Hx Influenza Vaccination: Yes Hx Pneumococcal Vaccination: Yes Review Of Systems Except As Marked, All Systems Reviewed And Found Negative. Constitutional: Negative for: Fever, Chills, Sweats Eyes: Negative for: Vision Change Cardiovascular: Positive for: Chest Pain (resolved) Respiratory: Positive for: Shortness of Breath (resolved) Gastrointestinal: Negative for: Nausea, Vomiting, Abdominal Pain Neurological: Negative for: Weakness, Numbness, Headache Physical Exam - Physical Exam Appears: Non-toxic, No Acute Distress Skin: Normal Color, Warm, Dry Head: Atraumatic, Normacephalic Eye(s): bilateral: Normal Inspection, PERRL, EOMI Neck: Normal ROM, Other (+ JVD bilaterally) Chest: Symmetrical, No Tenderness Cardiovascular: Rhythm Regular (but tachycardic) Respiratory: No Accessory Muscle Use, Rales (Mild bibasilar rales), No Rhonchi, No Wheezing Gastrointestinal/Abdominal: Soft, No Tenderness, No Distention Extremity: No Pedal Edema, No Calf Tenderness Extremity: Bilateral: Normal Color And Temperature, Normal ROM Pulses: Left Dorsalis Pedis: Normal, Right Dorsalis Pedis: Normal Neurological/Psych: Oriented x3, Normal Speech ED Course And Treatment - Laboratory Results Result Diagrams: 08/03/18 15:24 08/03/18 15:58 Lab Interpretation: No Changes Compared To Prior Results ECG: Interpreted By Wa ECG Rhythm: Atrial Fibrillation, R BBB (incomplete), ST/T Changes (inversions I, AVL, V5-6) O2 Sat by Pulse Oximetry: 99 (RA) Pulse Ox Interpretation: Normal - Radiology CXR: Interpreted by Me CXR Interpretation: Yes: Cardiomegaly (with vascular congestion) Reevaluation Time: 17:25 Reassessment Condition: Improved - Physician Consult Information Time Consulting Physician Contacted: 17:25 Physician Contacted: Dee Gray Outcome Of Conversation: Patient to be admitted for CHF Medical Decision Making Medical Decision Making: Impression: 67 year old with chest pain, SOB Plan: --EKG --CMP --Troponin I --Pro-BNP --CBC --Chest x-ray --Urinalysis --Reassess and dispo Disposition - Disposition Disposition: HOSPITALIZED Disposition Time: 17:28 Condition: STABLE - POA Present On Arrival: None - Clinical Impression Clinical Impression: Congestive heart failure - Scribe Statement The provider has reviewed the documentation as recorded by the Scribe (Liberty Magaña) Provider Attestation: All medical record entries made by the Scribe were at my direction and personally dictated by me. I have reviewed the chart and agree that the record accurately reflects my personal performance of the history, physical exam, medical decision making, and the department course for this patient. I have also personally directed, reviewed, and agree with the discharge instructions and disposition.
[2018-08-03 15:29] LABS: BASO # 0.1 K/uL (0.0-0.2); BASO % 1.3 % (0.0-2.0); EOS % 0.9 % (0.0-4.0); HEMOGLOBIN 13.6 g/dL (12.0-18.0); LYMPH # 1.7 K/uL (1.0-4.3); LYMPH % 39.5 % (20.0-40.0); MEAN CELL VOLUME 95.6 fL (80.0-94.0); MEAN CORPUSCULAR HEMOGLOBIN 31.9 pg (27.0-31.0); MEAN CORPUSCULAR HGB CONC 33.3 g/dL (33.0-37.0); MEAN PLATELET VOLUME 9.5 fL (7.2-11.7); MONO # 0.5 K/uL (0.0-0.8); NEUT % 47.3 % (50.0-75.0); NRBC % 0.2 % (0.0-2.0); RBC 4.26 Mil/uL (4.40-5.90); RED CELL DISTRIBUTION WIDTH 19.1 % (11.5-14.5); WHITE BLOOD COUNT 4.2 K/uL (4.8-10.8)
--- NOTE | 2018-08-03 15:35 | RAD ---
Date of service: 08/03/2018 PROCEDURE: CHEST RADIOGRAPH, 1 VIEW HISTORY: chest pain COMPARISON: 02/25/2018 FINDINGS: LUNGS: Clear. PLEURA: No pneumothorax or pleural fluid seen. CARDIOVASCULAR: Normal. OSSEOUS STRUCTURES: No significant abnormalities. VISUALIZED UPPER ABDOMEN: Normal. OTHER FINDINGS: None. IMPRESSION: No active disease.
[2018-08-03 16:12] LABS: SQUAMOUS EPITHIAL < 1 /hpf (0-5); URINE BACTERIA RARE (<OCC); URINE BILIRUBIN NEGATIVE (NEGATIVE); URINE BLOOD NEGATIVE (NEGATIVE); URINE CLARITY Hazy (Clear); URINE COLOR Yellow (YELLOW); URINE GLUCOSE (UA) NORMAL (Normal); URINE LEUKOCYTE ESTERASE 1+ Leu/uL (Negative); URINE PROTEIN 1+ mg/dL (NEGATIVE); URINE UROBILINOGEN NORMAL mg/dL (0.2-1.0)
[2018-08-03 16:28] LABS: ALB/GLOB RATIO 1.6 (1.0-2.1); ALBUMIN 4.1 g/dL (3.5-5.0); ALT/SGPT 62 U/L (21-72); AST/SGOT 80 U/L (17-59); BLOOD UREA NITROGEN 33 mg/dL (9-20); CALCIUM 9.3 mg/dl (8.6-10.4); GFR NON-AFRICAN AMERICAN 40
[2018-08-03 16:40] LABS: B-TYPE NATRIURETIC PEPTIDE 7420 pg/mL (0-900)
[2018-08-04] MEDS: Albuterol-Ipratrop 3 mg / 0.5 (3 ml) UD INH SCH ×2 (03:05→22:50)
[2018-08-04] MEDS: (Novolog) Insulin Aspart, Recombinant 100 u/ml 10 ml vial SC SCH ×4 (07:30→22:36)
[2018-08-04] MEDS ORDERED: Fluticasone-Vilanterol 200/25mcg Diskus INH SCH (08:00)
[2018-08-04] MEDS ORDERED: Mometasone 110 mcg/puff-30 puff Inh INH SCH (08:00)
[2018-08-04] MEDS: Multiple Vitamins Tab PO SCH (10:24)
--- NOTE | 2018-08-04 16:22 | CT ---
Date of service: 08/04/2018 PROCEDURE: CT HEAD WITHOUT CONTRAST. HISTORY: fall on anticoag COMPARISON: None available. TECHNIQUE: Axial computed tomography images were obtained through the head/brain without intravenous contrast. Radiation dose: Total exam DLP = 1070.89 mGy-cm. This CT exam was performed using one or more of the following dose reduction techniques: Automated exposure control, adjustment of the mA and/or kV according to patient size, and/or use of iterative reconstruction technique. FINDINGS: HEMORRHAGE: No intracranial hemorrhage. BRAIN: Diffuse atrophy with prominence of the ventricles and sulci noted. No mass effect or edema. Intracranial atherosclerosis. Mild scattered periventricular and subcortical white matter hypodensities, which are nonspecific, but often seen with chronic microvascular ischemic disease. Please note that MRI with diffusion imaging is more sensitive in the detection of acute ischemic event. VENTRICLES: No hydrocephalus. CALVARIUM: Unremarkable. PARANASAL SINUSES: Unremarkable as visualized. No significant inflammatory changes. MASTOID AIR CELLS: Partial opacification of the left mastoid air cells. The right mastoid air cells appear clear. OTHER FINDINGS: 0.8 x 2.3 cm right frontal parietal scalp hematoma. IMPRESSION: 0.8 x 2.3 cm right frontal parietal scalp hematoma. Mild nonspecific white matter changes. Partial opacification of the left mastoid air cells. Correlate clinically for history of mastoiditis.
[2018-08-04 17:32] LABS: CK-MB 1.04 ng/mL (0.0-3.38)
--- NOTE | 2018-08-04 17:40 | CP.PCM.PN ---
Subjective - Date & Time of Evaluation Date of Evaluation: 08/04/18 Time of Evaluation: 09:10 - Subjective Subjective: PGY2 Medicine Note for Dr. Gray Patient seen and examined this morning at bedside. Patient admitted overnight for chest pain, shortness of breath and increased leg swelling. He is mildly short of breath but feels much today. His legs swelling has improving and he is not feeling as fatigued as he did previously. He has no chest pain or palpitations now. Patient states that he is feeling much better now. Denies fevers, chills, nausea, vomiting, chest pain, numbness or tingling. PMHx: Chronic CHF (EF 20% 03/2018), [place] [facility] [place] nonobstructive CAD, asthma, DM, and insomnia Surg: Cardiac cath (03/18, no stents) All: PCN SH: Former smoker, quit 12 yrs ago; Admits to social EtOH use; Denies illicit drug use FHx: Non-contributory Objective - Vital Signs/Intake and Output Vital Signs (last 24 hours): Temp Pulse Resp BP Pulse Ox 97.3 F L 106 H 18 100/72 100 08/04/18 07:00 08/04/18 07:10 08/04/18 07:00 08/04/18 11:10 08/04/18 07:00 Intake and Output: 08/04/18 08/04/18 06:59 18:59 Intake Total 120 Output Total 600 Balance -480 - Medications Medications: Current Medications Albuterol/Ipratropium (Duoneb 3 Mg/0.5 Mg (3 Ml) Ud) 3 ml INH RQ6 [facility] Last Admin: 08/04/18 03:05 Dose: Not Given Amiodarone HCl (Cordarone) 200 mg PO DAILY [facility] Last Admin: 08/04/18 10:23 Dose: 200 mg Apixaban (Eliquis) 5 mg PO BID [facility] Last Admin: 08/04/18 10:31 Dose: 5 mg Aspirin (Ecotrin) 81 mg PO DAILY [facility] Last Admin: 08/04/18 12:12 Dose: 81 mg Carvedilol (Coreg) 6.25 mg PO BID [facility] Last Admin: 08/04/18 10:23 Dose: 6.25 mg Ergocalciferol (Drisdol 50,000 Intl Units Cap) 1 cap PO QWK [facility] Furosemide (Lasix) 40 mg IVP DAILY [facility] Last Admin: 08/04/18 11:10 Dose: 40 mg Gabapentin (Neurontin) 400 mg PO TID [facility] Last Admin: 08/04/18 14:30 Dose: 400 mg Home Med (Sacubitril/Valsartan [Entresto 97 Mg-103 Mg Tablet]) 1 tab PO BID [facility] Influenza Virus Vaccine (Fluzone Quad [id number]) 60 mcg IM .ONCE ONE Stop: 08/05/18 10:01 Insulin Aspart (Novolog) 0 unit [facility]; Protocol Last Admin: 08/04/18 12:00 Dose: Not Given Meclizine HCl (Antivert) 25 mg PO BID PRN PRN Reason: Dizziness Mometasone Furoate (Asmanex Twisthaler 110 Mcg) 110 puff INH RBID [facility] Montelukast Sodium (Singulair) 10 mg PO DAILY [facility] Last Admin: 08/04/18 10:24 Dose: 10 mg Multivitamins (Hexavitamin) 1 tab PO DAILY [facility] Last Admin: 08/04/18 10:24 Dose: 1 tab Spironolactone (Aldactone) 25 mg PO DAILY [facility] Last Admin: 08/04/18 10:22 Dose: 25 mg Temazepam (Restoril) 30 mg PO [facility] - Labs Labs: 08/03/18 15:24 08/03/18 15:58 - Constitutional Appears: Non-toxic, No Acute Distress - Head Exam Head Exam: ATRAUMATIC, NORMOCEPHALIC - Eye Exam Eye Exam: Normal appearance - ENT Exam ENT Exam: Mucous Membranes Moist - Respiratory Exam Respiratory Exam: Clear to Ausculation Bilateral, NORMAL BREATHING PATTERN. absent: Accessory Muscle Use, Rhonchi, Wheezes, Respiratory Distress - Cardiovascular Exam Cardiovascular Exam: Irregular Rhythm - Extremities Exam Extremities Exam: Pedal Edema. absent: Calf Tenderness - Neurological Exam Neurological Exam: Alert, Awake, Oriented x3 - Psychiatric Exam Psychiatric exam: Normal Affect, Normal Mood - Skin Skin Exam: Dry, Warm Assessment and Plan - Assessment and Plan (Free Text) Plan: Acute on Chronic CHF exacerbation: - Cardiology consulted, Dr. Duff - CXR (08/03): No active disease. - ECHO (03/2018) EF 20% - BNP 7420 - Medications * Duonebs 3mL INH q6h * Carvedilol 6.25mg PO BID * Lasix 40mg IVP daily * Spironolactone 25mg PO daily Atrial fibrillation with PVCs - Cardiology consulted, Dr. Duff - EKG reviewed showed a-fib with PVCs @98bpm, incomplete RBBB - Rate control: * Amiodarone 200mg BID * Carvedilol 6.25mg PO BID * Eliquis 5mg PO BID * Aspirin 81mg PO daily Reported history of fall on Patient reports that he fell on Wednesday Neuro exam unremarkable Patient has ecchymosis around right eye Head CT (08/04): * 0.8 x 2.3 cm right frontal parietal scalp hematoma. * Mild nonspecific white matter changes. * Partial opacification of the left mastoid air cells. Correlate clinically for history of mastoiditis. Safe to continue Eliquis H/O CAD - Cont ASA - Coreg Asthma - Mometasone 1 puff INH BID - Singular 10mg PO daily H/o DM - ISS - Accuchecks ACHS - Gabapentin 400mg PO TID GI/DVT PPx - Eliquis - GI PPx not indicated at this time All medical management per Dr. Gray
[2018-08-04 19:23] VITALS: RESP 20
--- NOTE | 2018-08-04 23:02 | CARD ---
APPROVED REPORT Date of service: 08/03/2018 EKG Measurement Heart [id number] <Conclusion> Atrial fibrillation with premature ventricular or aberrantly conducted complexes Low voltage QRS Incomplete right bundle branch block ST & T wave abnormality, consider lateral ischemia Abnormal ECG
[2018-08-05] MEDS: Albuterol-Ipratrop 3 mg / 0.5 (3 ml) UD INH SCH ×2 (01:18→19:43)
[2018-08-05] MEDS ORDERED: Influenza Vaccine 60 MCG/0.5 ML SYR (3 yr & up) IM ONE (10:00)
[2018-08-05] MEDS: Multiple Vitamins Tab PO SCH (10:16)
[2018-08-05] MEDS: (Novolog) Insulin Aspart, Recombinant 100 u/ml 10 ml vial SC SCH ×3 (13:22→21:17)
--- NOTE | 2018-08-05 13:57 | CP.PCM.PN ---
Subjective - Date & Time of Evaluation Date of Evaluation: 08/05/18 Time of Evaluation: 09:23 - Subjective Subjective: PGY2 Medicine Note for Dr. Gray Patient seen and examined this morning at bedside. No acute events overnight. Patient is states that he is feeling better today but is still experiencing chest pain. The pain is located in the center of his chest. He is not having any difficulty breathing and has no other complaints. Denies fevers, chills, nausea, vomiting, numbness or tingling. Objective - Vital Signs/Intake and Output Vital Signs (last 24 hours): Temp Pulse Resp BP Pulse Ox 98.6 F 102 H 20 95/69 L 96 08/05/18 07:00 08/05/18 07:05 08/05/18 07:00 08/05/18 07:00 08/05/18 07:00 - Medications Medications: Current Medications Albuterol/Ipratropium (Duoneb 3 Mg/0.5 Mg (3 Ml) Ud) 3 ml INH RQ6 [facility] Last Admin: 08/05/18 01:18 Dose: 3 ml Amiodarone HCl (Cordarone) 200 mg PO DAILY [facility] Last Admin: 08/04/18 10:23 Dose: 200 mg Apixaban (Eliquis) 5 mg PO BID [facility] Last Admin: 08/05/18 10:16 Dose: 5 mg Aspirin (Ecotrin) 81 mg PO DAILY [facility] Last Admin: 08/05/18 10:16 Dose: 81 mg Carvedilol (Coreg) 6.25 mg PO BID [facility] Last Admin: 08/04/18 18:49 Dose: 6.25 mg Ergocalciferol (Drisdol 50,000 Intl Units Cap) 1 cap PO QWK [facility] Furosemide (Lasix) 40 mg IVP DAILY [facility] Last Admin: 08/04/18 11:10 Dose: 40 mg Gabapentin (Neurontin) 400 mg PO TID [facility] Last Admin: 08/05/18 13:51 Dose: 400 mg Home Med (Sacubitril/Valsartan [Entresto 97 Mg-103 Mg Tablet]) 1 tab PO BID [facility] Insulin Aspart (Novolog) 0 unit SC ACHS [facility]; Protocol Last Admin: 08/05/18 13:22 Dose: Not Given Meclizine HCl (Antivert) 25 mg PO BID PRN PRN Reason: Dizziness Mometasone Furoate (Asmanex Twisthaler 110 Mcg) 110 puff INH RBID [facility] Montelukast Sodium (Singulair) 10 mg PO DAILY [facility] Last Admin: 08/05/18 10:16 Dose: 10 mg Multivitamins (Hexavitamin) 1 tab PO DAILY [facility] Last Admin: 08/05/18 10:16 Dose: 1 tab Spironolactone (Aldactone) 25 mg PO DAILY [facility] Last Admin: 08/05/18 10:16 Dose: 25 mg Temazepam (Restoril) 30 mg PO HS [facility] Last Admin: 08/04/18 22:35 Dose: 30 mg - Labs Labs: 08/03/18 15:24 08/03/18 15:58 - Additional Findings Additional findings: - Constitutional Appears: Non-toxic, No Acute Distress - Head Exam Head Exam: ATRAUMATIC, NORMOCEPHALIC - Eye Exam Eye Exam: Normal appearance - ENT Exam ENT Exam: Mucous Membranes Moist - Respiratory Exam Respiratory Exam: Clear to Ausculation Bilateral, NORMAL BREATHING PATTERN. absent: Accessory Muscle Use, Rhonchi, Wheezes, Respiratory Distress - Cardiovascular Exam Cardiovascular Exam: Irregular Rhythm - Extremities Exam Extremities Exam: Pedal Edema. absent: Calf Tenderness - Neurological Exam Neurological Exam: Alert, Awake, Oriented x3 - Psychiatric Exam Psychiatric exam: Normal Affect, Normal Mood - Skin Skin Exam: Dry, Warm Assessment and Plan - Assessment and Plan (Free Text) Plan: Acute on Chronic CHF exacerbation (improving) - Cardiology consulted, Dr. Duff - f/u recs - CXR (08/03): No active disease. - ECHO (03/2018) EF 20% - BNP 7420 - Medications * Duonebs 3mL INH q6h * Carvedilol 6.25mg PO BID * Lasix 40mg IVP daily * Spironolactone 25mg PO daily Atrial fibrillation with PVCs - Cardiology consulted, Dr. Duff - EKG reviewed showed a-fib with PVCs @98bpm, incomplete RBBB - Rate control: * Amiodarone 200mg BID * Carvedilol 6.25mg PO BID * Eliquis 5mg PO BID * Aspirin 81mg PO daily Reported history of fall on Patient reports that he fell on Wednesday Neuro exam unremarkable Patient has ecchymosis around right eye Head CT (08/04): * 0.8 x 2.3 cm right frontal parietal scalp hematoma. * Mild nonspecific white matter changes. * Partial opacification of the left mastoid air cells. Correlate clinically for history of mastoiditis. Safe to continue Eliquis H/O CAD - Cont ASA - Coreg Asthma - Mometasone 1 puff INH BID - Singular 10mg PO daily H/o DM - ISS - Accuchecks ACHS - Gabapentin 400mg PO TID GI/DVT PPx - Eliquis - GI PPx not indicated at this time All medical management per Dr. Gray
--- NOTE | 2018-08-05 16:04 | CP.PCM.CON ---
History of Present Illness - History of Present Illness History of Present Illness: Patient is a 67 y/o gentleman known to us from multiple admissions [facility] [place] well as outpatient f/u. Patient with severe NICM Chronic AFIB Normal Cath 04/2018 Background COPD/emphysema/asthma Mild Pulmonary HTN Presents with: ANOTHER EPISODE OF sob AND congestion, he also describes CP which is chest wall and now resolved. Currently no orthopnea, no LE edema, Mild JVD, AFIB noted on TELE with HR low 100's Review of Systems - Review of Systems All systems: reviewed and no additional remarkable complaints except Past Patient History - Infectious Disease Hx of Infectious Diseases: None - Past Medical History & Family History Past Medical History?: Yes - Past Social History Smoking Status: Former Smoker - CARDIAC Hx Hypertension: Yes - PULMONARY Hx Chronic Obstructive Pulmonary Disease (COPD): Yes - NEUROLOGICAL Hx Neurological Disorder: No - HEENT Hx HEENT Problems: No - RENAL Hx Chronic Kidney Disease: No - ENDOCRINE/METABOLIC Hx Endocrine Disorders: Yes Hx Diabetes Mellitus Type 2: Yes - HEMATOLOGICAL/ONCOLOGICAL Hx Blood Disorders: No - INTEGUMENTARY Hx Dermatological Problems: No - MUSCULOSKELETAL/RHEUMATOLOGICAL Hx Falls: No - GASTROINTESTINAL Hx Gastrointestinal Disorders: Yes - GENITOURINARY/GYNECOLOGICAL Hx Genitourinary Disorders: No - PSYCHIATRIC Hx Substance Use: No - SURGICAL HISTORY Hx Surgeries: Yes Other/Comment: LEFT ELBOW,LEFT FOOT SURGERY - ANESTHESIA Hx Anesthesia: Yes Hx Anesthesia Reactions: No Meds Allergies/Adverse Reactions: Allergies Allergy/AdvReac Type Severity Reaction Status Date / Time Penicillins Allergy RASH Verified 08/03/18 13:49 - Medications Medications: Current Medications Albuterol/Ipratropium (Duoneb 3 Mg/0.5 Mg (3 Ml) Ud) 3 ml INH RQ6 [facility] Last Admin: 08/05/18 01:18 Dose: 3 ml Amiodarone HCl (Cordarone) 200 mg PO DAILY [facility] Last Admin: 08/05/18 13:58 Dose: 200 mg Apixaban (Eliquis) 5 mg PO BID [facility] Last Admin: 08/05/18 10:16 Dose: 5 mg Aspirin (Ecotrin) 81 mg PO DAILY [facility] Last Admin: 08/05/18 10:16 Dose: 81 mg Carvedilol (Coreg) 6.25 mg PO BID [facility] Last Admin: 08/05/18 13:58 Dose: 6.25 mg Ergocalciferol (Drisdol 50,000 Intl Units Cap) 1 cap PO QWK [facility] Furosemide (Lasix) 40 mg IVP DAILY [facility] Last Admin: 08/05/18 10:00 Dose: Not Given Gabapentin (Neurontin) 400 mg PO TID [facility] Last Admin: 08/05/18 13:51 Dose: 400 mg Home Med (Sacubitril/Valsartan [Entresto 97 Mg-103 Mg Tablet]) 1 tab PO BID [facility] Insulin Aspart (Novolog) 0 unit SC ACHS [facility]; Protocol Last Admin: 08/05/18 13:22 Dose: Not Given Meclizine HCl (Antivert) 25 mg PO BID PRN PRN Reason: Dizziness Mometasone Furoate (Asmanex Twisthaler 110 Mcg) 110 puff INH RBID [facility] Montelukast Sodium (Singulair) 10 mg PO DAILY [facility] Last Admin: 08/05/18 10:16 Dose: 10 mg Multivitamins (Hexavitamin) 1 tab PO DAILY [facility] Last Admin: 08/05/18 10:16 Dose: 1 tab Spironolactone (Aldactone) 25 mg PO DAILY [facility] Last Admin: 08/05/18 10:16 Dose: 25 mg Temazepam (Restoril) 30 mg PO HS [facility] Last Admin: 08/04/18 22:35 Dose: 30 mg Physical Exam - Head Exam Head Exam: ATRAUMATIC, NORMAL INSPECTION, NORMOCEPHALIC - Eye Exam Eye Exam: EOMI, Normal appearance, PERRL - ENT Exam ENT Exam: Mucous Membranes Moist, Normal Oropharynx - Respiratory Exam Respiratory Exam: Decreased Breath Sounds, NORMAL BREATHING PATTERN. absent: Rales, Rhonchi, Wheezes - Cardiovascular Exam Cardiovascular Exam: Irregular Rhythm, JVD, +S1, +S2, Systolic Murmur (soft 2/6 apex no rad) - GI/Abdominal Exam GI & Abdominal Exam: Normal Bowel Sounds, Soft. absent: Tenderness - Extremities Exam Extremities exam: Positive for: normal inspection. Negative for: calf tenderne ss - Neurological Exam Neurological exam: Alert, CN II-XII Intact, Oriented x3 - Psychiatric Exam Psychiatric exam: Normal Affect, Normal Mood - Skin Skin Exam: Normal Color, Warm Results - Vital Signs Recent Vital Signs: Last Vital Signs Temp 98.6 F 08/05/18 07:00 Pulse 102 H 08/05/18 07:05 Resp 20 08/05/18 07:00 BP 98/62 L 08/05/18 10:00 Pulse Ox 96 08/05/18 07:00 - Labs Result Diagrams: 08/03/18 15:24 08/03/18 15:58 Labs: Laboratory Results - last 24 hr 08/04/18 08/04/18 08/04/18 11:44 13:57 16:50 POC Glucose (mg/dL) 144 H 141 H Total Creatine Kinase 44 L CK-MB (Mass) 1.04 Troponin I < 0.0120 08/04/18 16:55 POC Glucose (mg/dL) 90 Total Creatine Kinase CK-MB (Mass) Troponin I - EKG Data EKG Interpreted by: Myself (AFIB, inc RBBB, No acute ischemic changes) - Imaging and Cardiology Chest x-ray Status: Image reviewed by me (CM, mild congestion, small effusion causing Left CP blunting) Assessment & Plan - Assessment and Plan (Free Text) Assessment: 1. Acute on chronic NICM peng worsened by acut cecille chronic COPD and AFIB NICM: cath normal 04/2018 Continue to maximize CHF therapy increase Carvedilol (Coreg) 6.25 TID FOR NOW AND MONITOR BP RESPONSE IF HE CAN TOLERATE bp 85-100 SYSTOLIC THEN INC TO 12.5 bid Furosemide (Lasix) 40 mg creat is 1.7 with CKD 2-3 range, K+ is normal target CO2 to 30 range RESUME Sacubitril/Valsartan (Entresto 49 Mg-51 Mg Tablet) Continue Spironolactone (Aldactone) 25 mg 2. AFIB chronic cont eliquis rate control with coreg and amiodarone * monitor for worsening COPD/Asthma sx's * Patient is non-compliant with medical treatment; suggest outpatient f/u with us; will consider AFIB ablation as an option. * He is confident that he does not want any cardiac devices * Dig level was 1.7 IN [facility] FEW MONTHS BACK: avoid dig if tolerating coreg and amiodarone 3. COPD/Bronchitis Adjust meds for COPD Pulm suportive care
[2018-08-06] MEDS: Albuterol-Ipratrop 3 mg / 0.5 (3 ml) UD INH SCH ×3 (01:18→13:58)
[2018-08-06] MEDS: (Novolog) Insulin Aspart, Recombinant 100 u/ml 10 ml vial SC SCH ×2 (07:30→11:30)
[2018-08-06] MEDS: Multiple Vitamins Tab PO SCH (11:08)
--- NOTE | 2018-08-06 14:45 | CP.PCM.PN ---
Subjective - Date & Time of Evaluation Date of Evaluation: 08/06/18 Time of Evaluation: 14:45 - Subjective Subjective: Events reviewed Objective - Vital Signs/Intake and Output Vital Signs (last 24 hours): Temp Pulse Resp BP Pulse Ox 97.6 F 100 H 20 106/70 98 08/06/18 07:15 08/06/18 07:15 08/06/18 07:15 08/06/18 07:15 08/06/18 07:15 - Medications Medications: Current Medications Albuterol/Ipratropium (Duoneb 3 Mg/0.5 Mg (3 Ml) Ud) 3 ml INH RQ6 [facility] Last Admin: 08/06/18 13:58 Dose: 3 ml Amiodarone HCl (Cordarone) 200 mg PO DAILY [facility] Last Admin: 08/06/18 11:08 Dose: 200 mg Apixaban (Eliquis) 5 mg PO BID [facility] Last Admin: 08/06/18 11:08 Dose: 5 mg Aspirin (Ecotrin) 81 mg PO DAILY [facility] Last Admin: 08/06/18 11:08 Dose: 81 mg Carvedilol (Coreg) 6.25 mg PO BID [facility] Last Admin: 08/06/18 11:08 Dose: 6.25 mg Ergocalciferol (Drisdol 50,000 Intl Units Cap) 1 cap PO QWK [facility] Furosemide (Lasix) 40 mg IVP DAILY [facility] Last Admin: 08/05/18 10:00 Dose: Not Given Gabapentin (Neurontin) 400 mg PO TID [facility] Last Admin: 08/06/18 11:08 Dose: 400 mg Home Med (Sacubitril/Valsartan [Entresto 97 Mg-103 Mg Tablet]) 1 tab PO BID [facility] Insulin Aspart (Novolog) 0 unit SC [facility]; Protocol Last Admin: 08/06/18 07:30 Dose: Not Given Meclizine HCl (Antivert) 25 mg PO BID PRN PRN Reason: Dizziness Mometasone Furoate (Asmanex Twisthaler 110 Mcg) 110 puff INH RBID [facility] Montelukast Sodium (Singulair) 10 mg PO DAILY [facility] Last Admin: 08/06/18 11:08 Dose: 10 mg Multivitamins (Hexavitamin) 1 tab PO DAILY [facility] Last Admin: 08/06/18 11:08 Dose: 1 tab Spironolactone (Aldactone) 25 mg PO DAILY [facility] Last Admin: 08/06/18 11:08 Dose: 25 mg Temazepam (Restoril) 30 mg PO HS [facility] Last Admin: 08/05/18 22:32 Dose: 30 mg - Labs Labs: 08/03/18 15:24 08/03/18 15:58 Assessment and Plan - Assessment and Plan (Free Text) Assessment: 1. Acute on chronic NICM likley worsened by acut cecille chronic COPD and AFIB NICM: cath normal 04/2018 Continue to maximize CHF therapy increase Carvedilol (Coreg) 6.25 TID FOR NOW AND MONITOR BP RESPONSE IF HE CAN TOLERATE bp 85-100 SYSTOLIC THEN INC TO 12.5 bid Furosemide (Lasix) 40 mg creat is 1.7 with CKD 2-3 range, K+ is normal target CO2 to 30 range RESUME Sacubitril/Valsartan (Entresto 49 Mg-51 Mg Tablet) Continue Spironolactone (Aldactone) 25 mg 2. AFIB chronic cont eliquis rate control with coreg and amiodarone * monitor for worsening COPD/Asthma sx's * Patient is non-compliant with medical treatment; suggest outpatient f/u with us; will consider AFIB ablation as an option. * He is confident that he does not want any cardiac devices * Dig level was 1.7 IN [facility] FEW MONTHS BACK: avoid dig if tolerating coreg and amiodarone 3. COPD/Bronchitis Adjust meds for COPD Pulm suportive care
[2018-08-06 16:27] VITALS: BP 105/75; PULSE 106; TEMP 97.4; O2SAT 100
--- NOTE | 2018-08-06 17:12 | CP.PCM.PN ---
Subjective - Date & Time of Evaluation Date of Evaluation: 08/06/18 Time of Evaluation: 17:12 Objective - Vital Signs/Intake and Output Vital Signs (last 24 hours): Temp Pulse Resp BP Pulse Ox 97.4 F L 106 H 20 105/75 100 08/06/18 15:25 08/06/18 15:25 08/06/18 15:25 08/06/18 15:25 08/06/18 15:25 - Medications Medications: Current Medications Albuterol/Ipratropium (Duoneb 3 Mg/0.5 Mg (3 Ml) Ud) 3 ml INH RQ6 [facility] Last Admin: 08/06/18 13:58 Dose: 3 ml Amiodarone HCl (Cordarone) 200 mg PO DAILY [facility] Last Admin: 08/06/18 11:08 Dose: 200 mg Apixaban (Eliquis) 5 mg PO BID [facility] Last Admin: 08/06/18 11:08 Dose: 5 mg Aspirin (Ecotrin) 81 mg PO DAILY [facility] Last Admin: 08/06/18 11:08 Dose: 81 mg Carvedilol (Coreg) 6.25 mg PO BID [facility] Last Admin: 08/06/18 11:08 Dose: 6.25 mg Ergocalciferol (Drisdol 50,000 Intl Units Cap) 1 cap PO QWK [facility] Furosemide (Lasix) 40 mg IVP DAILY [facility] Last Admin: 08/06/18 11:08 Dose: 40 mg Gabapentin (Neurontin) 400 mg PO TID [facility] Last Admin: 08/06/18 14:52 Dose: 400 mg Home Med (Sacubitril/Valsartan [Entresto 97 Mg-103 Mg Tablet]) 1 tab PO BID [facility] Insulin Aspart (Novolog) 0 unit SC ACHS [facility]; Protocol Last Admin: 08/06/18 11:30 Dose: Not Given Meclizine HCl (Antivert) 25 mg PO BID PRN PRN Reason: Dizziness Mometasone Furoate (Asmanex Twisthaler 110 Mcg) 110 puff INH RBID [facility] Montelukast Sodium (Singulair) 10 mg PO DAILY [facility] Last Admin: 08/06/18 11:08 Dose: 10 mg Multivitamins (Hexavitamin) 1 tab PO DAILY [facility] Last Admin: 08/06/18 11:08 Dose: 1 tab Spironolactone (Aldactone) 25 mg PO DAILY [facility] Last Admin: 08/06/18 11:08 Dose: 25 mg Temazepam (Restoril) 30 mg PO HS [facility] Last Admin: 08/05/18 22:32 Dose: 30 mg - Labs Labs: 08/03/18 15:24 08/03/18 15:58 Assessment and Plan - Assessment and Plan (Free Text) Assessment: FOLLOW UP WITH DR RUTHERFORD IN HIS OFFICE ---CALL FOR APPOINTMENT FOLLOW UP WITH DR CATHERINE IN HIS OFFICE ---CALL FOR APPOINTMENT CONTINUE HOME MEDICATION ACTIVITY TOLERATED CALL DR RUTHERFORD OR GO TO THE EMERGENCY ROOM IF SYMPTOM RETURN OR WORSENING
[2018-08-06] MEDS ORDERED: Sacubitril/Valsartan 49-51 Tab PO SCH (19:00)
--- NOTE | 2018-08-08 12:33 | IP.NPCORE ---
Heart Failure Core Measure - Heart Failure Ejection Fraction: Less Than 40 % KENN Inhibitor Prescribed: No Contraindication/Reason for not providing: arb Beta-Tony Prescribed: Carvedilol Angiotensin II Receptor Tony Prescribed: Yes AnticoagulationTherapy for Atrial Fibrillation/Atrialflutter: Yes Aldosterone Antagonist Prescribed: Yes Hydralazine Nitrate Prescribed: No Contraindication/Reason for not providing: low bp Implantable Cardioverter Defibrillator Therapy: No Contraindication/Reason for not providing: be discussed with unix developer as out patient Cardiac Resynchronization Therapy Prescribed: No Contraindication/Reason for not providing: f/u with cardio for poss ablation - Follow up Will be discharged to: Home Follow Up Date (must be within 7 days from discharge): 08/10/18 Follow Up Time: 10:00
[2018-08-10] MEDS ORDERED: Ergocalciferol 50,000 Intl Units Cap PO SCH (10:00)
== END 2018-08-06 18:00 | disposition home or self-care (01) | DRG 293 ==
LOC: C.ER 13:32 → C.9E 17:28 → C.6T 19:06
PROVIDERS: ADMIT Internal Medicine Pulmonary Disease; ATTEND Internal Medicine Pulmonary Disease
DX: I11.0 Hypertensive heart disease with heart failure (principal); I50.9 Heart failure, unspecified; E78.5 Hyperlipidemia, unspecified; F41.9 Anxiety disorder, unspecified; R60.0 Localized edema; E11.9 Type 2 diabetes mellitus without complications; I25.10 Atherosclerotic heart disease of native coronary artery without angina pectoris; I25.2 Old myocardial infarction; J44.9 Chronic obstructive pulmonary disease, unspecified; I48.2 Chronic atrial fibrillation; I42.9 Cardiomyopathy, unspecified; Z91.19 Patient's noncompliance with other medical treatment and regimen; Z87.891 Personal history of nicotine dependence; Z79.01 Long term (current) use of anticoagulants